=== PATIENT | female | born 1970 | race Caucasian/White ===

== ENCOUNTER → 2020-07-22 16:55 | Outpatient (BNVA) | payer MEDICAID, SELFPAY | PROVIDERS: Visit Provider Nurse Practitioner Family | DX: M77.10 Lateral epicondylitis, unspecified elbow (principal); E66.9 Obesity, unspecified; M77.12 Lateral epicondylitis, left elbow; E66.09 Other obesity due to excess calories; E03.9 Hypothyroidism, unspecified; Z68.31 Body mass index [BMI] 31.0-31.9, adult; E78.5 Hyperlipidemia, unspecified; E11.9 Type 2 diabetes mellitus without complications | CPT/HCPCS: 80053; 80061; 82306; 82607; 83036; 84439; 84443; 84481; 85025 ==

== ENCOUNTER → 2020-08-20 15:44 | Outpatient (BNVA) | payer MEDICAID, SELFPAY | PROVIDERS: Visit Provider Nurse Practitioner Family | DX: Z20.828 Contact with and (suspected) exposure to other viral communicable diseases (principal); J06.9 Acute upper respiratory infection, unspecified; R43.0 Anosmia | CPT/HCPCS: 87635 ==

== ENCOUNTER → 2020-09-23 16:30 | Outpatient (BNVA) | payer MEDICAID, SELFPAY | PROVIDERS: Visit Provider Nurse Practitioner Family | DX: Z20.828 Contact with and (suspected) exposure to other viral communicable diseases (principal); R51.9 Headache, unspecified; A08.4 Viral intestinal infection, unspecified | CPT/HCPCS: 87635 ==

== ENCOUNTER 2020-11-15 08:03 | Outpatient (CLI) | payer BC, SELFPAY ==
--- NOTE | 2020-11-15 08:13 | FL_ITS ---
WS: [id number] Exam: FL upper GI smallbowel series Date/Time of Exam: 11/15/2020 8:22 AM Reason For Exam: R11.2 - Nausea with vomiting, unspecified Fluoroscopy time: 3.9 minutes Signs of prior cholecystectomy. Swallowing function was normal. There is no sign of gastroesophageal reflux noted during fluoroscopy. There are postoperative changes of the stomach secondary to gastric sleeve procedure. The gastric re manent is freely distensible. No mass or ulceration is demonstrated. The duodenal bulb is smooth in c ontour. Barium spills freely into the proximal small bowel. The duodenal C-loop is not widened or dis placed. Small bowel follow-through. Barium courses through the small bowel without obstruction. Barium is not ed in the right colon at 20 minutes. No evidence of bowel loop herniation or displacement. The mucosa l pattern of the duodenum, jejunum and ileum appears normal. Spot compression images of the terminal ileum demonstrated no significant abnormal finding. FL/FL upper GI smallbowel series IMPRESSION: 1. Status post gastric sleeve procedure. The residual stomach demonstrates no m ass or ulceration. No gastric outlet obstruction. The duodenal bulb appears nor mal. 2. Normal small bowel follow-through.
== END 2020-11-15 08:04 | disposition home or self-care (01) ==
PROVIDERS: Visit Provider Surgery
DX: R11.2 Nausea with vomiting, unspecified (principal); Z98.84 Bariatric surgery status
CPT/HCPCS: 74240; 74248

== ENCOUNTER → 2020-12-05 15:17 | Outpatient (BNVA) | payer BC, MEDICAID, SELFPAY | PROVIDERS: PCP Nurse Practitioner Family; Visit Provider Psychiatry & Neurology Neurology | DX: M77.12 Lateral epicondylitis, left elbow (principal); G56.02 Carpal tunnel syndrome, left upper limb; Z87.891 Personal history of nicotine dependence | CPT/HCPCS: 95886; 95908 ==

== ENCOUNTER 2020-12-13 08:05 | Outpatient (CLI) | payer BC, MEDICAID, SELFPAY ==
[2020-12-13] MEDS: iohexol 300 mg/mL 50 mL Btl PO (08:54)
--- NOTE | 2020-12-13 09:30 | CT_ITS ---
WS: [id number] CT ABDOMEN AND PELVIS WITH CONTRAST HISTORY: R19.00 - Intra-abdominal and pelvic swelling, mass and lump, unspecified site TECHNIQUE: Imaging performed of the abdomen and pelvis with IV contrast. Single phase imaging of the abdomen. Coronal and sagittal reformats are submitted. All CT scans at [facility] use at least one of these dose optimization techniques: automated exposure control; mA and/or kV adjustment per patient size (includes targeted exams where dose is matched to clinical indication); or iterativ e reconstruction. IV CONTRAST: Omnipaque 300; 95 mL IV. Oral contrast: Yes. DLP: 1176.79 mGycm COMPARISON: 11/15/2015 Lower thorax: Benign granuloma at the LEFT lung base along the diaphragm. Heart is normal size. No hi atal hernia. Liver/biliary system: Normal size with no intrahepatic dilatation. Gallbladder: Status post cholecystectomy. Pancreas: Normal. Spleen: Normal size with granulomata. There is a cleft in the superior portion of the spleen which wa s not present on the prior study, may be from a prior infarct. No mass. Adrenal glands: Normal. Right kidney: Normal size kidney. There are several too small to characterize hypodensities within th e kidney. These are stable since 2016. Left kidney: Normal. Aorta: Normal. Lymphadenopathy: None. Free fluid: None. GI tract: Prior appendectomy. Prior gastric sleeve. No dilatation of the GI tract or strictures. No m ucosal thickening. There is mild diffuse constipation. Abdominal wall: Unremarkable abdominal wall. No hernia. Pelvis: No free fluid or adenopathy in the pelvis. There is mild heterogeneity within the central deon luisito which may be due to fibroids or endometrial abnormality. Bones: Unremarkable. CT/CT abdomen pelvis w con* [id number] IMPRESSION: 1. No acute abdominal or pelvic abnormalities are identified. 2. Prior gastric sleeve, appendectomy and cholecystectomy. 3. Mild heterogeneity within the central uterus. Consider follow-up transvagin al pelvic ultrasound to exclude fibroid or endometrial abnormality. 4. Moderate constipation.
[2020-12-13] MEDS: iohexol 300 mg/mL 100 mL Btl IV (09:43)
== END 2020-12-13 08:06 | disposition home or self-care (01) ==
PROVIDERS: PCP Nurse Practitioner Family; Visit Provider Surgery
DX: R19.00 Intra-abdominal and pelvic swelling, mass and lump, unspecified site (principal); K59.00 Constipation, unspecified; Z98.84 Bariatric surgery status
CPT/HCPCS: 74177; Q9967

== ENCOUNTER → 2020-12-19 09:58 | Outpatient (BNVA) | payer BC, MEDICAID, SELFPAY | PROVIDERS: PCP Nurse Practitioner Family; Visit Provider Surgery | DX: Z12.11 Encounter for screening for malignant neoplasm of colon (principal); Z11.52 Encounter for screening for COVID-19 | CPT/HCPCS: 87635 ==

== ENCOUNTER → 2021-03-20 10:30 | Outpatient (BNVA) | payer BC, MEDICAID, SELFPAY | PROVIDERS: PCP Nurse Practitioner Family; Visit Provider Surgery | DX: E53.8 Deficiency of other specified B group vitamins (principal); G56.02 Carpal tunnel syndrome, left upper limb | CPT/HCPCS: 87635 ==

== ENCOUNTER 2021-03-27 07:23 | Day surgery (SDC) | payer BC, MEDICAID, SELFPAY ==
[2021-03-26 17:46] VITALS: BMI 29.2
[2021-03-27] VITALS (7 sets, daily range): BP systolic 129–158; BP diastolic 72–82; PULSE 59–69; RESP 18–20; TEMP 36.1–36.5; O2SAT 95–97
[2021-03-27] MEDS: sodium chloride 0.9% 1,000 ML 30 ML IV (08:14)
--- NOTE | 2021-03-27 08:20 | W.PM.OPSUD ---
Surgery/Procedure H&P Update DATE OF PROCEDURE: March 27, 2021 DATE H&P PERFORMED: 03/21/21 H&P UPDATE INFORMATION: I have reviewed H&P completed within last 30 days PREOP DIAGNOSIS: Carpal tunnel syndrome, Left cubital tunnel syndrome, Lateral epicondylitis PLANNED PROCEDURE: Operation Date: 03/27/21 08:40 Proposed Procedures p left Carpal Tunnel Release and injection left elbow lateral epicondyle 45025 14963 G56.02 G56.22 M77.12(Left) - Ford Johnson MD s left Ulna Nerve Decompression(Left) - Ford Johnson MD
--- NOTE | 2021-03-27 08:27 | ANES.PREANE2 ---
Pre-Anesthetic Assessment Pre-Anesthetic Assessment: Height/Weight: Height 1.6 m Weight 74.843 kg Temp Pulse Resp BP Pulse Ox 97.7 F 64 18 152/78 97 03/27/21 07:35 03/27/21 07:35 03/27/21 07:35 03/27/21 07:35 03/27/21 07:35 Preop Diagnosis: Carpal tunnel syndrome, Left cubital tunnel syndrome, Lateral epicondylitis Proposed Procedure: Operation Date: 03/27/21 08:40 Proposed Procedures p left Carpal Tunnel Release and injection left elbow lateral epicondyle 07463 00977 G56.02 G56.22 M77.12(Left) - Ford Johnson MD s left Ulna Nerve Decompression(Left) - Ford Johnson MD Was Beta Rober taken within 24 hours: N/A Was Clonidine taken within 24 hours: N/A Last intake: Intake Last Liquid Date 03/26/21 Last Liquid Time 21:00 Last Solid Date 03/26/21 Last Solid Time 21:00 Social: Social History: Tobacco and No alcohol Exam: Pre-Anes Outpt Exam: alert, oriented x 3, clear to auscultation bilaterally and regular rate & rhythm Airway: Submandibular: WNL Cervical ROM: WNL MP: 2 Dentition: Full History/ROS: No significant history except as noted and No significant complaints Pulmonary: Pulmonary: None reported CV/HEM: CV/HEM: None reported : : None reported Hepatic: Hepatic: None reported GI: GI: None reported Metabolic: Metabolic: Thyroid Musc/skel: Musc/skel: None reported Neuropsych: Neuropsych: Anxiety and Depression Anesthetic Plan: ASA status: 2 Anesthesia: Anesthesia Evaluation and General Risk of > 500 ml blood loss (7ml/kg in children): No Meds/Allergies Current Medications: Current Medications Generic Name Dose Route Start Last Admin Trade Name Freq PRN Reason Stop Dose Admin Sodium Chloride 1,000 mls @ 30 ml s/hr 03/27/21 07:30 03/27/21 08:14 Sodium Chloride 0.9% IV 03/28/21 07:29 30 mls/hr .Q24H ILSA Administration PFSH Anesthesia PFSH: Medical History Anxiety and depression Diabetes Dyslipidemia Hypothyroid KRISTYN (obstructive sleep apnea) Surgical History Hx of appendectomy Hx of cholecystectomy Hx of gastric bypass Hx of tubal ligation Family History Family/Other Cancer Breast Heart disease Father Diabetes Social History Smoking and tobacco status: former smoker Quit status (tobacco): has quit using tobacco Year quit tobacco: 2014 Former quit date comment: 0.5 PPD x 15 yrs Second hand smoke exposure: No Alcohol intake: never Lives independently: Yes Household members: children Marital status: service: No Current occupational status: unemployed History of recent travel: No Current gender identity: Female Special kelly needs: No Data Anesthesia Cardiac Studies: No Data to Display
[2021-03-27] MEDS: clindamycin 600 MG/50 ML PREMIX 100 MG IV (08:30)
[2021-03-27] MEDS: betamethasone susp 6 mg/mL 5 mL IM (09:03)
--- NOTE | 2021-03-27 09:35 | PM.OP ---
Operative Report Date of procedure: March 27, 2021 Pre-op Diagnosis: Left carpal tunnel syndrome, cubital tunnel syndrome, Lateral epicondylitis Post-op diagnosis: same Post-op Findings: Same Procedure Done: Left ulnar nerve decompression injection, left carpal tunnel release, left lateral epicondyle injection. Pathology: none sent Surgeon: Ford Johnson Anesthesia: General Estimated blood loss (mL): 10 Tourniquet time (min): 13 Findings: No masses or space-occupying no masses or space-occupying lesions were seen behind the medial epicondyle or within the carpal tunnel. Procedure: The patient was taken to the operating room and given a general anesthesia. A tourniquet was inflated to 225 mmHg. A timeout was performed. A 5 cm long incision was made behind the medial epicondyle. Dissection was accomplished bluntly under loupe magnification identifying the ulnar nerve proximally. Utilizing a hemostat the fascia over the nerve was elevated and incised proximally. Dissection was then carried distally behind the medial epicondyle and into the flexor carpi ulnaris musculature. Dissection was stopped with the first muscular branches identified. Elbow was brought through range of motion with the nerve seen to stay reduced behind the medial epicondyle. No formal transition was thought to be warranted. Wounds were irrigated with saline. A 3 cm long incision was made in line with the fourth ray from the distal edge of the carpal tunnel extending proximally. The subcutaneous fat and palmar fascia was divided with a scalpel blade. Under loupe magnification the ulnar neurovascular bundle was identified distally. A hemostat could be passed under the transverse carpal ligament allowing the distal 25% to be divided. A slotted guide was then passed beneath the transverse carpal ligament and the middle 50% divided. Blunt scissors were then passed over the guide freeing the proximal ligament. The tourniquet was deflated. Hemostasis provided with electrocautery. A 27-gauge needle was then introduced into the area of the lateral epicondyle and distal soft tissues in that area infiltrated with 1 cc of Celestone Soluspan and 1 cc of 0.5% Marcaine. Wound edges were infiltrated with 10 cc of a half percent Marcaine solution about the left medial elbow and left carpal tunnel incisions. Deep tissues were closed with 2-0 Vicryl. Skin edges were reapproximated with a running 3-0 Prolene along the medial elbow and simple Prolene stitches over the carpal tunnel incisions.. Sterile dressings were applied. The patient was taken to the recovery room in stable condition
[2021-03-27] MEDS: HYDROcodone-acetaminophen 5-325 mg Tablet 1 TAB PO (10:10)
== END 2021-03-27 10:36 | disposition home or self-care (01) ==
PROVIDERS: PCP Nurse Practitioner Family; Visit Provider Orthopaedic Surgery
PROC: (CPT 64721; principal; 2021-03-27 08:35)
PROC: (CPT 64718; 2021-03-27 08:35)
DX: G56.02 Carpal tunnel syndrome, left upper limb (principal); G56.22 Lesion of ulnar nerve, left upper limb; M77.12 Lateral epicondylitis, left elbow; E11.9 Type 2 diabetes mellitus without complications; E78.5 Hyperlipidemia, unspecified; E03.9 Hypothyroidism, unspecified; G47.33 Obstructive sleep apnea (adult) (pediatric); Z87.891 Personal history of nicotine dependence
CPT/HCPCS: 64718; 64721; 96365; J0702; J1100; J1885; J2405; J2704; J3010; J3490; J7030

== ENCOUNTER → 2021-04-01 14:35 | Outpatient (BNVA) | payer BC, MEDICAID, SELFPAY | PROVIDERS: PCP Nurse Practitioner Family; Visit Provider Nurse Practitioner Family | DX: Z20.822 Contact with and (suspected) exposure to COVID-19 (principal); J06.9 Acute upper respiratory infection, unspecified | CPT/HCPCS: 87635 ==

== ENCOUNTER → 2021-04-22 15:03 | Outpatient (BNVA) | payer BC, MEDICAID, SELFPAY | PROVIDERS: PCP Nurse Practitioner Family; Visit Provider Orthopaedic Surgery | DX: Z48.89 Encounter for other specified surgical aftercare (principal); M25.569 Pain in unspecified knee | CPT/HCPCS: 73560; 73565 ==

== ENCOUNTER → 2021-04-30 17:00 | Outpatient (BNVA) | payer BC, MEDICAID, SELFPAY | PROVIDERS: PCP Nurse Practitioner Family; Visit Provider Nurse Practitioner Family | DX: G43.909 Migraine, unspecified, not intractable, without status migrainosus (principal); R53.83 Other fatigue; E88.81 Metabolic syndrome and other insulin resistance; L20.9 Atopic dermatitis, unspecified; R11.2 Nausea with vomiting, unspecified; M25.50 Pain in unspecified joint; G56.22 Lesion of ulnar nerve, left upper limb | CPT/HCPCS: 80053; 80061; 82306; 82607; 83036; 83721; 84439; 84443; 84550; 85025; 85651; 86038; 86140; 86431; 87635 ==

== ENCOUNTER → 2021-05-01 08:12 | Outpatient (BNVA) | payer BC, MEDICAID, SELFPAY | PROVIDERS: PCP Nurse Practitioner Family; Visit Provider Nurse Practitioner Family | DX: Z20.822 Contact with and (suspected) exposure to COVID-19 (principal); G43.909 Migraine, unspecified, not intractable, without status migrainosus; R53.83 Other fatigue; E88.81 Metabolic syndrome and other insulin resistance; L20.9 Atopic dermatitis, unspecified; R11.2 Nausea with vomiting, unspecified; M25.50 Pain in unspecified joint; G56.22 Lesion of ulnar nerve, left upper limb | CPT/HCPCS: 87635 ==

== ENCOUNTER → 2021-05-05 17:21 | Outpatient (BNVA) | payer BC, MEDICAID, SELFPAY | PROVIDERS: PCP Nurse Practitioner Family; Visit Provider Family Medicine | DX: M79.671 Pain in right foot (principal); L20.9 Atopic dermatitis, unspecified; M77.31 Calcaneal spur, right foot | CPT/HCPCS: 73630 ==

== ENCOUNTER 2021-05-07 08:55 | Day surgery (SDC) | payer MEDICAID, SELFPAY ==
[2021-05-07 09:35] VITALS: BP 136/67; PULSE 67; RESP 18; TEMP 36.1; O2SAT 98
[2021-05-07] MEDS: sodium chloride 0.9% 1,000 ML 30 ML IV (09:41)
[2021-05-07 10:02] LABS: OR HCG Qualitative Urine Negative (Negative)
--- NOTE | 2021-05-07 11:04 | P.HP_ITS ---
Same Day Surgery H&P Indication for Procedure/HPI DATE OF PROCEDURE: May 07, 2021 CHIEF COMPLAINT/INDICATIONFOR SURGICAL PROCEDURE: My lolita agudelo PREOP DIAGNOSIS: Abdominal pain PLANNED PROCEDRUE: Operation Date: 04/14/21 08:30 Proposed Procedures p EGD/colon 84589 07193 R63.5(Not Applicable) - Ramakrishna Morales MD s Colonoscopy(Not Applicable) - Ramakrishna Morales MD Operation Date: 05/07/21 10:15 Proposed Procedures p EGD 23725 R63.5(Not Applicable) - Ramakrishna Morales MD s Colonoscopy 90224 R63.5(Not Applicable) - Ramakrishna Morales MD 10/24/2020 This is a pleasant 50 years old female patient well-known to me from previous clinical encounters as she did undergo a laparoscopic vertical sleeve gastrectomy back in November 2016.Patient current weight is 162 pounds with a BMI of 30.6I did not see the patient almost for 2 years after her surgery as she moved to a different state. she came back to [place] she has been having history of repeated vomiting and worsening constipation. Undergone an upper GI study back in February 2019 that showed postoperative changes status post sleeve gastrectomy and a concern about potential gastroparesis was mentioned on that study. Upper GI study OPINION: 1. Limited exam. 2. Prior sleeve gastrectomy. 3. Generally diminished gastric peristalsis without mechanical outlet obstruction. Consider gastroparesis. Further evaluation could include nuclear medicine gastric emptying study. Also around that time an ultrasound of the abdomen was done that showed: FINDINGS: Echotexture of the pancreas is normal. Patent inferior vena cava. Echotexture of the liver is normal. Liver depth measures 15 cm. Antegrade portal venous flow. The gallbladder is surgically absent. Normal size extra hepatic bile duct at 2.1 mm. The abdominal aorta is nonaneurysmal. Right kidney measures 11.7 cm in length, 5 cm in depth and 4.6 cm in width with normal echotexture. Left kidney measures 13.4 cm in length, 4.6 cm in depth and 5.5 cm in width with normal echotexture. No pelvocaliectasis of either kidney. Normal spleen measuring 9.1 cm in length. OPINION: Prior cholecystectomy, otherwise normal ultrasound of the abdomen. Moving forward patient was complaining of hemorrhoidal disease and giving the previous history of vomiting and in the light of the upper GI study I did offer the patient diagnostic EGD and colonoscopy with examination under anesthesia and possible hemorrhoidectomy, Patient was scheduled for this procedure,Yet patient decided to hold off on the procedure. Since then I did not see the patient again in my practice, she comes today 10/24/2020 complaining that she has been concerned about gaining weight and having episodes of recurrent vomiting and constipation.And she reports to me that she had gone to [place] for a GI specialist and I do not have records of her work-up over there. Patient current weight is 162 pounds and a BMI of 30.6. Patient reports that she is not complaining of her hemorrhoids anymore at this point. 12/02/2020 patient comes today as follow-up status post upper GI study and small bowel follow-through that showed: 1. Status post gastric sleeve procedure. The residual stomach demonstrates no mass or ulceration. No gastric outlet obstruction. The duodenal bulb appears normal. 2. Normal small bowel follow-through. Patient continues to complain of nausea and vomiting and constipation also she is complaining of right upper quadrant bulge thinking it might be a hernia. 05/07/2021 Patient comes today for diagnostic EGD and colonoscopy CT scan of the abdomen pelvis 12/13/2020 showed 1. No acute abdominal or pelvic abnormalities are identified. 2. Prior gastric sleeve, appendectomy and cholecystectomy. 3. Mild heterogeneity within the central uterus. Consider follow-up transvaginal pelvic ultrasound to exclude fibroid or endometrial abnormality. 4. Moderate constipation. ROS All systems have been reviewed negative except as per the above or per problem list Medications/Allergies* Allergies/Adverse Reactions Allergy/AdvReac Type Severity Reaction Status Date / Time erythromycin base Allergy Severe ALGY-Difficulty Verified 05/07/21 11:10 Breathing Penicillins Allergy Severe ALGY-Difficulty Verified 05/07/21 11:10 Breathing Current Medications: Generic Name Dose Route Start Last Admin Trade Name Freq PRN Reason Stop Dose Admin Sodium Chloride 1,000 mls @ 30 mls/hr 05/07/21 09:45 05/07/21 09:41 Sodium Chloride 0.9% IV 05/08/21 09:44 30 mls/hr .Q24H ILSA Administration Pertinent History/Comorbid Conditions* Medical History (Updated 05/05/21 @ 17:14 by Jillian Gonzalez MD) Anxiety and depression Diabetes Dyslipidemia Hypothyroid Metabolic syndrome KRISTYN (obstructive sleep apnea) Surgical History (Updated 04/30/21 @ 16:37 by JOSE RAUL Demarco) History of carpal tunnel release right Hx of appendectomy Hx of cholecystectomy Hx of gastric bypass Hx of tubal ligation Family History (Updated 07/22/20 @ 15:50 by Samra Barber LPN, RT) Diabetes Father Heart disease Family/Other Cancer Family/Other Breast Social History Smoking and tobacco status: former smoker Quit status (tobacco): has quit using tobacco Year quit tobacco: 2014 Former quit date comment: 0.5 PPD x 15 yrs Second hand smoke exposure: No Alcohol intake: never Lives independently: Yes Household members: children Marital status: service: No Current occupational status: unemployed History of recent travel: No Current gender identity: Female Special kelly needs: No Pertinent Exam Findings alert, oriented x 3, clear to auscultation bilaterally, regular rate & rhythm and procedure specific exam findings (Abdominal examination nontender nondistended soft) Recommendations Surgery/Procedure today (EGD and colonoscopy possible) Other Plans: Plan of care; After thorough history and physical examination and reviewing the chart, plan to perform a diagnostic esophagogastroduodenoscopy and diagnostic colonoscopy with possible biopsy and possible polypectomy. I discussed with the patient in detail the risks,benefits,alternatives and indications.The risk of aspiration, bleeding, soft tissue injury, perforation of the stomach/esophagus/colon and other potential concomitant complications were explained to the patient in details also the potential need for Thoracotomy and or Laproscoy/Laparotomy to repair any related complications including but not limited to colectomy and or Closotomy. The patient understood this well and did agree to proceed. 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
--- NOTE | 2021-05-07 11:06 | ANES.PREANE2 ---
Documented by User: Darinel Quijano Jr, AUDIO VISUAL COLLECTIONS COORDINATOR 05/07/21 11:08 Pre-Anesthetic Assessment Pre-Anesthetic Assessment: Height/Weight: Height 1.6 m Weight 77.111 kg Temp Pulse Resp BP Pulse Ox 97.0 F L 67 18 136/67 98 05/07/21 09:35 05/07/21 09:35 05/07/21 09:35 05/07/21 09:35 05/07/21 09:35 Preop Diagnosis: Left carpal tunnel syndrome, cubital tunnel syndrome, Lateral epicondylitis Proposed Procedure: Operation Date: 04/14/21 08:30 Proposed Procedures p EGD/colon 36553 76884 R63.5(Not Applicable) - Ramakrishna Morales MD s Colonoscopy(Not Applicable) - Ramakrishna Morales MD Operation Date: 05/07/21 10:15 Proposed Procedures p EGD 27349 R63.5(Not Applicable) - Ramakrishna Morales MD s Colonoscopy 38548 R63.5(Not Applicable) - Ramakrishna Morales MD Was Beta Rober taken within 24 hours: N/A Was Clonidine taken within 24 hours: N/A Last intake: Intake Last Liquid Date 05/06/21 Last Liquid Time 22:00 Last Solid Date 05/05/21 Social: Social History: No alcohol and No tobacco Exam: Pre-Anes Outpt Exam: alert, oriented x 3, clear to auscultation bilaterally and regular rate & rhythm Airway: Submandibular: WNL Cervical ROM: WNL MP: 2 Dentition: Full History/ROS: No significant history except as noted and No significant complaints Pulmonary: Pulmonary: Sleep apnea CV/HEM: CV/HEM: None reported : : None reported Hepatic: Hepatic: None reported GI: GI: GERD Comments: Gastric sleeve Metabolic: Metabolic: DM and Thyroid Musc/skel: Musc/skel: None reported Neuropsych: Neuropsych: Anxiety Anesthetic Plan: ASA status: 3 Anesthesia: MAC Risk of > 500 ml blood loss (7ml/kg in children): No Meds/Allergies Current Medications: Current Medications Generic Name Dose Route Start Last Admin Trade Name Freq PRN Reason Stop Dose Admin Sodium Chloride 1,000 mls @ 30 ml s/hr 05/07/21 09:45 05/07/21 09:41 Sodium Chloride 0.9% IV 05/08/21 09:44 30 mls/hr .Q24H ILSA Administration PFSH Anesthesia PFSH: Medical History Anxiety and depression Diabetes Dyslipidemia Hypothyroid Metabolic syndrome KRISTYN (obstructive sleep apnea) Surgical History History of carpal tunnel release right Hx of appendectomy Hx of cholecystectomy Hx of gastric bypass Hx of tubal ligation Family History Family/Other Cancer Breast Heart disease Father Diabetes Social History Smoking and tobacco status: former smoker Quit status (tobacco): has quit using tobacco Year quit tobacco: 2014 Former quit date comment: 0.5 PPD x 15 yrs Second hand smoke exposure: No Alcohol intake: never Lives independently: Yes Household members: children Marital status: service: No Current occupational status: unemployed History of recent travel: No Current gender identity: Female Special kelly needs: No Data Anesthesia Other Labs: Laboratory Results - last 48 hr 05/07/21 09:43 Urine HCG, Qual Negative Cardiac Studies: No Data to Display Documented by User: Jassi Arzola 05/07/21 12:19 PFSH Anesthesia PFSH: Medical History Anxiety and depression Diabetes Dyslipidemia Hypothyroid Metabolic syndrome KRISTYN (obstructive sleep apnea) Surgical History History of carpal tunnel release right Hx of appendectomy Hx of cholecystectomy Hx of gastric bypass Hx of tubal ligation Family History Family/Other Cancer Breast Heart disease Father Diabetes Social History Smoking and tobacco status: former smoker Quit status (tobacco): has quit using tobacco Year quit tobacco: 2014 Former quit date comment: 0.5 PPD x 15 yrs Second hand smoke exposure: No Alcohol intake: never Lives independently: Yes Household members: children Marital status: service: No Current occupational status: unemployed History of recent travel: No Current gender identity: Female Special kelly needs: No Data Anesthesia Cardiac Studies: No Data to Display
[2021-05-07 11:40] VITALS: BP 114/76; PULSE 66; RESP 16; TEMP 36.1; O2SAT 94
[2021-05-07 11:51] VITALS: BP 129/76; PULSE 58; RESP 16; O2SAT 100
--- NOTE | 2021-05-07 14:10 | ANE.PACU2 ---
Inpatient post-anesthesia follow up: Airway intact: Yes Vital signs: Temperature 97 F Pulse Rate 58 Respiratory Rate 16 Blood Pressure 129/76 Pulse Oximetry 100 Oxygen Delivery Me thod Room Air Oxygen Flow Rate 3 Fraction of Inspir ed Oxygen Hydration adequate: Yes Nausea and vomiting: No Pain level: 1 Mental status: Baseline
[2021-05-08 13:21] LABS: H. Pylori / CLO Test Negative
== END 2021-05-07 12:10 | disposition home or self-care (01) ==
PROVIDERS: Anesthesiology; PCP Nurse Practitioner Family; Visit Provider Surgery
PROC: 0DJ08ZZ Inspection of Upper Intestinal Tract, Via Natural or Artificial Opening Endoscopic (ICD-10-PCS; CPT 43235; principal; 2021-05-07 10:15)
PROC: 0DJD8ZZ Inspection of Lower Intestinal Tract, Via Natural or Artificial Opening Endoscopic (ICD-10-PCS; CPT 45378; 2021-05-07 10:15)
DX: R10.9 Unspecified abdominal pain (principal); K29.70 Gastritis, unspecified, without bleeding; Z98.84 Bariatric surgery status; E11.9 Type 2 diabetes mellitus without complications; E78.5 Hyperlipidemia, unspecified; E03.9 Hypothyroidism, unspecified; G47.33 Obstructive sleep apnea (adult) (pediatric); F17.210 Nicotine dependence, cigarettes, uncomplicated; F41.9 Anxiety disorder, unspecified
CPT/HCPCS: 43239; 45378; 81025; 84703; 87077; 96360; 96361; J2704; J7030

== ENCOUNTER 2021-05-11 14:05 | Emergency (ER) | payer MEDICAID, SELFPAY ==
[2021-05-11 14:18] VITALS: BP 162/91; PULSE 82; RESP 16; TEMP 36.2; O2SAT 98
--- NOTE | 2021-05-11 14:33 | XRR_ITS ---
PROCEDURE INFORMATION: Exam: XR Left Knee Exam date and time: 05/11/2021 2:33 PM Age: 51 years old Clinical indication: Injury or trauma; Fall; Blunt trauma; Knee; Left TECHNIQUE: Imaging protocol: XR Left knee. Views: 3 views. COMPARISON: CR XR knees AP WB w BI lmt ORTH 04/22/2021 3:11 PM FINDINGS: Bones/joints: Negative for fracture. Mild joint space narrowing of the medial and patellofemoral compartments. Soft tissues: Normal. XR/XR knee LT 3V* [id number] IMPRESSION: No acute findings.
--- NOTE | 2021-05-11 14:33 | XRR_ITS ---
PROCEDURE INFORMATION: Exam: XR Chest Exam date and time: 05/11/2021 2:33 PM Age: 51 years old Clinical indication: Cough TECHNIQUE: Imaging protocol: XR of the chest. Views: 1 view. COMPARISON: CR Chest 1 [place] [id number] 12/09/2016 4:39 PM FINDINGS: Lungs: Unremarkable. No consolidation. Pleural spaces: Unremarkable. No pleural effusion. No pneumothorax. Heart/Mediastinum: Unremarkable. No cardiomegaly. Bones/joints: Unremarkable. XR/XR chest 1V portable [id number] IMPRESSION: No acute findings.
--- NOTE | 2021-05-11 14:33 | XRR_ITS ---
PROCEDURE INFORMATION: Exam: XR Thoracic Spine Exam date and time: 05/11/2021 2:33 PM Age: 51 years old Clinical indication: Injury or trauma; Fall; Blunt trauma (contusions or hematomas); Additional info: Back pain TECHNIQUE: Imaging protocol: XR of the thoracic spine. Views: 3 views. COMPARISON: CR (CHEST, ) 05/11/2021 3:11 PM FINDINGS: Bones/joints: No acute fracture. Normal alignment. Soft tissues: Unremarkable. XR/XR thoracic spine 3V* [id number] IMPRESSION: No acute findings.
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
[2021-05-11] MEDS: ketorolac 30 mg/mL INJ 15 MG IM (15:00)
--- NOTE | 2021-05-11 16:00 | PC.NURSE ---
No deformities for brusing noted,
== END 2021-05-11 16:34 | disposition home or self-care (01) ==
PROVIDERS: Emergency Provider Emergency Medicine; PCP Nurse Practitioner Family
DX: T14.8XXA Other injury of unspecified body region, initial encounter (principal); Y04.8XXA Assault by other bodily force, initial encounter; E11.9 Type 2 diabetes mellitus without complications; E78.5 Hyperlipidemia, unspecified; Z87.891 Personal history of nicotine dependence
CPT/HCPCS: 71045; 72072; 73562; 96372; 99283; J1885

== ENCOUNTER → 2021-05-20 15:20 | Outpatient (BNVA) | payer MEDICAID, SELFPAY | PROVIDERS: PCP Nurse Practitioner Family; Visit Provider Nurse Practitioner Family | DX: R07.81 Pleurodynia (principal); M25.512 Pain in left shoulder | CPT/HCPCS: 71101; 73030 ==

== ENCOUNTER 2021-05-21 08:46 | Observation (INO) | payer MEDICAID, SELFPAY ==
[2021-05-21] VITALS (8 sets, daily range): BP systolic 106–163; BP diastolic 67–111; PULSE 86–136; RESP 12–20; TEMP 36.6–37.2; O2SAT 91–99; BMI 31.8
--- NOTE | 2021-05-21 09:26 | ECG_ITS ---
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 Measurements Intervals [place] Rate: 98 P: 42 NE: 160 QRS: -3 QRSD: 93 T: -4 QT: 368 QTc: 472 Interpretive Statements SINUS RHYTHM WITH SOME ELECTRICAL ARTIFACTS POSSIBLE LEFT ATRIAL ENLARGEMENT [-0.1mV P-WAVE IN V1/V2] SEPTAL MYOCARDIAL INFARCTION , OF INDETERMINATE AGE [40+ ms Q WAVE IN V1/V2] Compared to ECG 05/21/2021 10:33:20 Sinus tachycardia no longer present Indeterminate axis no longer present Myocardial infarct finding still present Electronically Signed On 05-21-2021 21:39:04 CDT by Napoleon Felder M.D. [id number]
--- NOTE | 2021-05-21 09:26 | XR_ITS ---
WS: [id number] PORTABLE CHEST HISTORY: dyspnea/cough COMPARISON: 05/20/2021 Lungs are clear and well expanded. No pleural effusion or pneumothorax. Cardiac size: Normal. Mediastinum/Aorta: Normal mediastinum. No osseous abnormality seen. XR/XR chest 1V portable [id number] IMPRESSION: Unremarkable portable chest.
[2021-05-21 09:33] LABS: Basophils % 0.4 %; Eosinophils # 0.1 10^3/uL (0.0-0.8); Eosinophils % 0.5 %; Hematocrit 46.5 % (37.0-47.0); Hemoglobin 14.5 g/dL (11.5-15.3); Lymphocytes # 1.7 10^3/uL (0.8-4.8); Lymphocytes % 15.7 %; Mean Corpuscular HGB Conc 31.2 g/dL (30.0-36.0); Mean Corpuscular Hemoglobin 30.1 pg (28.0-34.0); Mean Corpuscular Volume 96.5 fl (81-99); Mean Platelet Volume 10.4 fL (7.4-10.4); Monocytes # 0.7 10^3/uL (0.2-0.9); Monocytes % 6.1 %; Neutrophils # 8.29 10^3/uL (1.8-7.7); Neutrophils % 76.9 %; Nucleated Red Blood Cells % 0 %; Platelet Count 342 10^3/cmm (130-400); Red Blood Count 4.82 10^6/uL (4.1-5.3); Red Cell Distribution Width 12.6 % (12.1-15.1); White Blood Count 10.8 10^3/uL (4.0-10.0)
[2021-05-21 09:51] LABS: Add Urine Microscopic? YES; Bilirubin Urine Neg (Negative); Blood Urine Neg (Negative); Glucose Urine UA Norm (Normal); Ketones Urine Negative (Negative); Leukocyte Esterase Urine Negative (Negative); Nitrate Urine Positive (Negative); Protein Urine Neg (Negative); Urine Appearance Clear (CLEAR); Urine Color Yellow (Yellow); Urobilinogen Urine Norm (Negative); pH Urine 6 (5-7)
[2021-05-21 09:53] LABS: Add Urine Culture? Yes; Bacteria Urine 2+ /hpf; Squamous Epithelial Cell Urine 0-4 /hpf (0-5); WBC Urine 0-4 /hpf (0-5)
--- NOTE | 2021-05-21 09:55 | W.ED.GENADLT ---
HPI - General Adult General: Chief complaint: General Medical Stated complaint: Reaction to Meds Time Seen by Provider: 05/21/21 08:50 History of Present Illness: HPI narrative: 51-year-old female presents emergency room complaining of shaking lightheadedness headache rapid heart rate dizziness. She started taking Flexeril yesterday took 1 last night took her regular medicines this morning additionally she is on citalopram 10 mg daily. She denies any other medication changes or use of any other medicines. She not having any chest pain at this time is extremely anxious and tachycardic. Patient had googled her symptoms and was concerned she had serotonin syndrome. Talked about increasing her citalopram but had not yet done so. She only took 1 dose of the cyclobenzaprine. Symptoms began earlier this morning and are persisting. Onset (ago): hour(s) Severity: moderate Relieving factors: none Exacerbating factors: none Associated symptoms: Reports diaphoresis, decreased appetite, headache(s), malaise, nausea, palpitations, short of breath and weakness; Deny chest pain, confusion, cough, dyspnea, fevers/chills, rash, seizures, syncope or vomiting Treatments prior to arrival: none Review of Systems Const: Reports: malaise and diaphoresis ENMT: Denies: throat pain, ear or mastoid pain, nasal discharge or nasal congestion Card: Reports: palpitations; Denies: chest pain or syncope Resp: Denies: dyspnea GI: Reports: nausea; Denies: vomiting : Denies: flank pain, difficulty voiding, dysuria, urinary frequency or urinary urgency Skin/Breast: Denies: rash Neuro: Reports: headache(s); Denies: confusion PFS ED PFSH: Medical History Anxiety and depression Diabetes Dyslipidemia Hypothyroid Metabolic syndrome KRISTYN (obstructive sleep apnea) Surgical History History of carpal tunnel release right Hx of appendectomy Hx of cholecystectomy Hx of gastric bypass Hx of tubal ligation Family History Family/Other Cancer Breast Heart disease Father Diabetes Social History Smoking and tobacco status: never smoked Quit status (tobacco): has quit using tobacco Year quit tobacco: 2014 Former quit date comment: 0.5 PPD x 15 yrs Second hand smoke exposure: No Alcohol intake: never Lives independently: Yes Household members: children Marital status: service: No Current occupational status: unemployed History of recent travel: No Current gender identity: Female Special kelly needs: No Physical Exam Const: COMMON NORMALS: no acute distress GENERAL APPEARANCE: cooperative and comfortable ORIENTATION/CONSCIOUSNESS: Yes awake, Yes oriented to person, Yes oriented to place and Yes oriented to time HENMT: COMMON NORMALS: normocephalic, atraumatic and hearing grossly normal bilaterally HEAD & SCALP: normocephalic and atraumatic Resp: COMMON NORMALS: normal respiratory effort, No retractions, No use of accessory muscles and clear to auscultation bilaterally AUSCULTATION: clear to auscultation bilaterally Cardio: COMMON NORMALS: regular rate, regular rhythm and No murmurs present (Cardio) RATE: regular rate RHYTHM: regular rhythm GI: COMMON NORMALS: Soft to palpation and No hepatosplenomegaly present AUSCULTATION: Yes normoactive bowel sounds PALPATION: Yes Soft to palpation, No Tenderness to palpation present (GI), No Guarding due to palpation present (GI) and Yes No hepatosplenomegaly present Extremity: COMMON NORMALS: normal to inspection, capillary refill normal, no clubbing, cyanosis or edema, no calf tenderness and no pedal edema Neuro: SENSORIUM/ORIENTATION: Yes oriented to person, Yes oriented to place and Yes oriented to time Skin: COMMON NORMALS: no rashes or lesions noted GENERAL SKIN EXAM: no rashes or lesions noted Course Vital Signs: Vital signs: Vital Signs Temperature 97.9 F 05/21/21 08:57 Pulse Rate 125 H 05/21/21 10:30 Respiratory Rate 12 05/21/21 10:30 Blood Pressure 127/92 05/21/21 10:30 Pulse Oximetry 95 05/21/21 10:30 MDM - General Adult MDM Narrative: Medical decision making narrative: Labs and imaging reviewed on the chart. EKG reviewed as well. Symptoms improved after benzodiazepines. Urine drug screen positive for methamphetamines. Discussed with the patient she said she takes phentermine occasionally. Is not listed on her medication list. She did say she took within the last couple of days. It is unlikely that she is getting serotonin syndrome from a single dose of cyclobenzaprine especially while on such a low dose of citalopram. For now would encourage her to stop both the phentermine and the cyclobenzaprine follow-up with her primary care doctor and return if she has further problems. Lab Data: Labs: Lab Results 05/21/21 05/21/21 05/21/21 09:15 09:15 09:15 WBC 10.8 10^3/uL H 10 ^3/uL (4.0-10.0) RBC 4.82 10^6/uL 10^6 /uL (4.1-5.3) Hgb 14.5 g/dL g/dL (11.5-15.3) Hct 46.5 % % (37.0-47.0) MCV 96.5 fl fl (81-99) MCH 30.1 pg pg (28.0-34.0) MCHC 31.2 g/dL g/dL (30.0-36.0) RDW 12.6 % % (12.1-15.1) Plt Count 342 10^3/cmm 10^3 /cmm (130-400) MPV 10.4 fL fL (7.4-10.4) Neut % (Auto) 76.9 % % Lymph % (Auto) 15.7 % % [place] % (Auto) 6.1 % % Eos % (Auto) 0.5 % % Baso % (Auto) 0.4 % % Neut # (Auto) 8.29 10^3/uL H 10 ^3/uL (1.8-7.7) Lymph # (Auto) 1.7 10^3/uL 10^3/ uL (0.8-4.8) [place] # (Auto) 0.7 10^3/uL 10^3/ uL (0.2-0.9) Eos # (Auto) 0.1 10^3/uL 10^3/ uL (0.0-0.8) Baso # (Auto) 0.0 10^3/uL 10^3/ uL (0.0-0.1) Nucleated RBC % (a uto) 0 % % Nucleated RBCs # 0.0 /100WBC /100W BC Sodium 136 mmol/L mmol/L (136-145) Potassium 4.2 mmol/L mmol/L (3.5-5.1) Chloride 99 mmol/L mmol/L (98-107) Carbon Dioxide 24 mmol/L mmol/L (22-29) Anion Gap 17.2 (5-19) BUN 14 mg/dL mg/dL (6-20) Creatinine 0.4 mg/dL L mg/dL (0.5-0.9) GFR Calculation 168.3 mL/min H mL /min (90-130) Glucose 123 mg/dL H mg/dL (65-115) Calculated Osmolal ity 284 mOsm/kg L mOs m/kg (285-295) Calcium 9.4 mg/dL mg/dL (8.5-10.5) Total Bilirubin 0.2 mg/dL mg/dL (0.15-1.2) AST 12 U/L U/L (0-32) ALT 17 U/L U/L (0-33) Alkaline Phosphata se 120 IU/L H IU/L (35-105) Creatine Kinase 49 U/L U/L (26-192) Troponin T Baselin e 42 ng/L H ng/L (0-10) Troponin T 120 Min [place] Troponin T Total Protein 7.4 g/dL g/dL (6.6-8.7) Albumin 4.6 g/dL g/dL (3.5-5.2) Globulin 2.8 g/dL g/dL (1.3-4.6) Urine Color Urine Appearance Urine pH Ur Specific Gravit y Urine Protein Urine Glucose (UA) Urine Ketones Urine Blood Urine Nitrate Urine Bilirubin Urine Urobilinogen Ur Leukocyte Laura ase Urine RBC Urine WBC Ur Squamous Epith Cells Amorphous Sediment Urine Bacteria Urine Opiates Scre en Ur Barbiturates Sc reen Ur Phencyclidine S crn Ur Amphetamines Sc reen U Benzodiazepines Scrn Urine Cocaine Scre en U Marijuana (THC) Screen 05/21/21 05/21/21 05/21/21 09:38 09:38 11:18 WBC RBC Hgb Hct MCV MCH MCHC RDW Plt Count MPV Neut % (Auto) Lymph % (Auto) [place] % (Auto) Eos % (Auto) Baso % (Auto) Neut # (Auto) Lymph # (Auto) [place] # (Auto) Eos # (Auto) Baso # (Auto) Nucleated RBC % (a uto) Nucleated RBCs # Sodium Potassium Chloride Carbon Dioxide Anion Gap BUN Creatinine GFR Calculation Glucose Calculated Osmolal ity Calcium Total Bilirubin AST ALT Alkaline Phosphata se Creatine Kinase Troponin T Baselin e Troponin T 120 Min [place] 32.73 ng/L H ng/L (0-10) Delta Troponin T -9.27 ABS# L ABS# (0-10) Total Protein Albumin Globulin Urine Color Yellow (Yellow) Urine Appearance Clear (CLEAR) Urine pH 6 (5-7) Ur Specific Gravit y 1.020 (1.005-1.030) Urine Protein Neg (Negative) Urine Glucose (UA) Norm (Normal) Urine Ketones Negative (Negative) Urine Blood Neg (Negative) Urine Nitrate Positive H (Negative) Urine Bilirubin Neg (Negative) Urine Urobilinogen Norm mg/dL mg/dL (Negative) Ur Leukocyte Laura ase Negative (Negative) Urine RBC None /hpf /hpf (0-2) Urine WBC 0-4 /hpf H /hpf (0-5) Ur Squamous Epith Cells 0-4 /hpf H /hpf (0-5) Amorphous Sediment Not Reportable Urine Bacteria 2+ /hpf H /hpf (NONE) Urine Opiates Scre en Negative ng/mL ng /mL (Negative) Ur Barbiturates Sc reen Negative ng/mL ng /mL (Negative) Ur Phencyclidine S crn Negative ng/mL ng /mL (Negative) Ur Amphetamines Sc reen Positive ng/mL H ng/mL (Negative) U Benzodiazepines Scrn Negative ng/mL ng /mL (Negative) Urine Cocaine Scre en Negative ng/mL ng /mL (Negative) U Marijuana (THC) Screen Negative ng/mL ng /mL (Negative) Discharge Plan Discharge Patient Disposition: Home Clinical Impression: Medication side effects Condition: Stable Prescriptions: Discontinued cyclobenzaprine 10 mg tablet 10 mg PO TID PRN (Reason: muscle spasm) Qty: 20 RF: 0 No Action cyanocobalamin (vitamin B-12) 1,000 mcg/mL solution 1,000 mcg SUBCUT .monthly Qty: 1 RF: 3 diclofenac sodium 75 mg tablet,delayed release (DR/EC) 75 mg PO BID PRN (Reason: pain) Qty: 60 RF: 0 pantoprazole 40 mg tablet,delayed release (DR/EC) 40 mg PO DAILY Qty: 30 RF: 0 citalopram 10 mg tablet 10 mg PO DAILY Qty: 30 RF: 0 sumatriptan succinate [Imitrex] 100 mg tablet See Rx Instructions PO .COMPLEX Qty: 9 RF: 0 pimecrolimus [Elidel] 1 % cream 1 applic topical BID Qty: 30 RF: 1 ergocalciferol (vitamin D2) 1,250 mcg (50,000 unit) capsule 1,250 mcg PO .weekly Qty: 4 RF: 2 Discharge Orders: Discharge ED (Routine); Ordered 05/21/21 Ordered By: David Taylor Referrals: Samra Alva FNP [Primary Care Provider] - Discharge Diet: Usual diet Discharge Activity: Limit activity as instructed Patient Instructions: Opioid Safety Activity Restrictions/Additional Instructions: Stop cyclobenzaprine. Recommend against the use of phentermine. Follow-up with your primary care doctor within the next week. Coding Level of Care Code ED Auto Body Shop Manager for Elie Fwd Exam Detailed
[2021-05-21 10:02] LABS: Alanine Aminotransferase 17 U/L (0-33); Albumin Level 4.6 g/dL (3.5-5.2); Alkaline Phosphatase 120 IU/L (35-105); Anion Gap 17.2 (5-19); Aspartate Amino Transferase 12 U/L (0-32); Blood Urea Nitrogen 14 mg/dL (6-20); Calcium 9.4 mg/dL (8.5-10.5); Carbon Dioxide 24 mmol/L (22-29); Chloride 99 mmol/L (98-107); Creatine Phosphokinase 49 U/L (26-192); Globulin 2.8 g/dL (1.3-4.6); Glomerular Filtration Rate 168.3 mL/min (90-130); Glucose 123 mg/dL (65-115); Osmolality Calculated 284 mOsm/kg (285-295); Potassium 4.2 mmol/L (3.5-5.1); Sodium 136 mmol/L (136-145); Total Bilirubin 0.2 mg/dL (0.15-1.2); Total Protein 7.4 g/dL (6.6-8.7)
[2021-05-21] MEDS: LORazepam 2 mg/mL INJ 1 mL IVP (10:03)
[2021-05-21 10:33] LABS: Amphetamines Screen Urine Positive (Negative); Barbiturates Screen Urine Negative (Negative); Benzodiazepines Screen Urine Negative (Negative); Cocaine Screen Urine Negative (Negative); Opiate Screen Urine Negative (Negative); PCP Screen Urine Negative (Negative); THC Screen Urine Negative (Negative)
[2021-05-21 10:36] LABS: Troponin(5th) Baseline 42 ng/L (0-10)
--- NOTE | 2021-05-21 11:26 | ECG_ITS ---
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 Measurements Intervals [place] Rate: 126 P: 42 SD: 148 QRS: -37 QRSD: 88 T: 14 QT: 312 QTc: 453 Interpretive Statements SINUS TACHYCARDIA Poor R wave progression Possible old septal PA INDETERMINATE AXIS No previous ECG available for comparison Electronically Signed On 05-21-2021 21:47:07 CDT by Napoleon Felder M.D. [email or web address] [email or web address] clinic avon hospitalJack and Jake's/store/[id number]
[2021-05-21 11:54] LABS: Troponin 5 2HR 32.73 ng/L (0-10)
[2021-05-21] MEDS: LORazepam 2 mg Tablet PO (12:51)
--- NOTE | 2021-05-21 13:01 | CT_ITS ---
WS: [id number] CT CHEST ANGIOGRAPHY WITH REFORMATS HISTORY: tachycardia TECHNIQUE: Contiguous axial images are obtained through the chest during arterial injection of intrav enous contrast. Images are reconstructed to evaluate the pulmonary arteries. MIP imaging also reviewe d. All CT scans at [facility] use at least one of these dose optimization techniques: automat ed exposure control; mA and/or kV adjustment per patient size (includes targeted exams where dose is matched to clinical indication); or iterative reconstruction. CONTRAST: Omnipaque 350; 95 mL IV. DLP: 572.81 mGy.cm COMPARISON: None available. Very good opacification of the pulmonary arteries. No filling defect. Pulmonary artery size is equal to the aorta. Normal size aorta. Normal size heart. No pericardial or pleural effusions. Lungs are clear. No pneumothorax, pulmonary contusion, pneumonia or nodule. Subsegmental atelectasis at the lingula and a benign granuloma LEFT lower lobe. No mediastinal or hilar adenopathy. Small hiatal hernia. Hepatic steatosis. Prior cholecystectomy. No adrenal mass. Mild thoracolumbar sc oliosis. LEFT lateral fourth and fifth rib fractures. These fractures are not healed. There is very minimal ca llus formation and pleural thickening adjacent to these rib fractures. CT/CT angio chest PE protcl 05194 IMPRESSION: 1. No pulmonary embolism. 2. No pneumothorax. 3. Incompletely healed, nondisplaced LEFT fourth and fifth rib fractures. 4. No adenopathy.
--- NOTE | 2021-05-21 13:01 | CT_ITS ---
WS: [id number] CT HEAD NONCONTRAST HISTORY: headache TECHNIQUE: Contiguous axial imaging performed through the brain in 2.5 mm imaging. Bone and soft tiss ue windows. Sagittal and coronal reformats reviewed. All CT scans at [facility] use at least one of these dose optimization techniques: automated exposure control; mA and/or kV adjustment per pa tient size (includes targeted exams where dose is matched to clinical indication); or iterative recon struction. DLP: 1672.41 mGy.cm COMPARISON: None available. No acute intracranial hemorrhage, midline shift or mass effect. No atrophy or prior infarcts or herniation. Ventricles: Normal size with no hydrocephalus. Paranasal sinuses: As visualized are clear. Mastoid air cells: Well pneumatized. Calvarium and scalp: Skull is intact with no soft tissue edema or swelling. CT/CT head wo con* [id number] IMPRESSION: Negative head CT.
[2021-05-21] MEDS: iohexol 350 mg/mL 100 mL Btl IV (13:11)
[2021-05-21 13:17] LABS: Free T4 Free Thyroxine 1.15 ng/dL (0.82-1.77)
[2021-05-21] MEDS: metoprolol tartrate 50 mg Tablet PO (14:38)
[2021-05-21] MEDS: metoprolol tartrate 1 mg/1 mL SDV 5 mL 5 MG IVP (14:38)
[2021-05-21] MEDS: sodium chloride 0.9% 1,000 ML 150 ML IV (14:39)
--- NOTE | 2021-05-21 15:26 | ECG_ITS ---
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 Measurements Intervals [place] Rate: 123 P: 19 CA: 158 QRS: -24 QRSD: 87 T: 9 QT: 322 QTc: 461 Interpretive Statements SINUS TACHYCARDIA INDETERMINATE AXIS SEPTAL MYOCARDIAL INFARCTION , PROBABLY OLD [40+ ms Q WAVE IN V1/V2] No previous ECG available for comparison Electronically Signed On 05-21-2021 21:47:18 CDT by Napoleon Felder M.D. [id number]
[2021-05-21 16:04] LABS: Troponin 5 6HR 23.26 ng/L (0-10)
[2021-05-21] MEDS: enoxaparin 40 mg/0.4 mL Syringe SUBCUT (16:11)
[2021-05-21] MEDS: ketorolac 30 mg/mL INJ IVP (16:11)
--- NOTE | 2021-05-21 16:30 | PM.HP ---
Providers/Chief Complaint Admitting Physician: Isabel Flores MD Primary Care Provider: JOSE RAUL Demarco Chief Complaint: Reaction to Meds History of Present Illness Cecily Muniz is a 51 year old female with history of ADD, vitamin D deficiency, depression, vitamin B12 deficiency, celiac disease, gastric sleeve 2017 presented to the hospital today with complaint of vomiting in the middle of the night, diaphoresis, headache. She does have a history of migraines and has a headache maybe once or twice a week. Patient believed that she had serotonin syndrome as per the ER note. She was on citalopram and yesterday was prescribed Flexeril. She took 1 dose of the Flexeril and had the above symptoms about 6 hours later. She states she googled the symptoms and there was a severe interaction between Flexeril and citalopram. She is quite anxious and concerned and will not be taking Flexeril again. She states she has a lot of anxiety problems and would like her to stay in the hospital with her tonight. At this point in time when seen she complains of a headache at the back of her head which is about 8 out of 10 at this moment. She states does not feel like her migraine. She usually has auras with her migraines and before it comes on she takes medication and she is able to control the headache. She denies any nausea vomiting, abdominal pain, chest pain, any other issues at this time. About 1 week ago she was in the ER diagnosed with rib fractures. For her ADD she claims that as an adult she has outgrown it and does not take any Ritalin or Adderall. There is also a history of positive VINCE and her primary care is currently working her up for that. ED course: On arrival to ER blood pressure 127/92, respiratory rate 12, pulse ox 95%, heart rate 125, temperature 97.9. EKG was performed and no acute ischemic changes, urine drug screen positive for methamphetamines. This was discussed with the patient but she states she did has never taken meth but she does take phentermine occasionally but it is not her medication list. She states the last time it took phentermine was a couple of days ago. Plan was to discharge her but right before discharge her heart rate was in the 130s again. At one point her blood pressure was also elevated to 163/93. CTA was done and PE was ruled out, CT head was also done negative for intracranial bleed or any other pathology. She was recommended for an observation admission. Review of Systems General: Reports: 10 or more systems reviewed and unremarkable except in HPI and below Const: Reports: body aches; Denies: fever(s) or chills Eyes: Denies: blurry vision ENMT: Denies: throat pain Card: Reports: palpitations; Denies: chest pain or irregular heart rhythm Resp: Denies: dyspnea or productive cough GI: Reports: nausea and vomiting; Denies: abdominal pain : Denies: difficulty voiding Musc: Reports: other Neuro: Reports: headache(s) and restless legs; Denies: numbness in extremities or weakness in extremities Psych: Reports: anxiety Endo: Denies: polydipsia All/Imm: Denies: facial swelling Medications/Allergies Home Medications Medication Instructions Recorded Confirmed Last Taken Type citalopram 10 mg tablet 10 mg PO DAILY #30 tab 04/30/21 05/21/21 05/21/21 Rx pantoprazole 40 mg tablet,delayed 40 mg PO DAILY #30 tab 04/30/21 05/21/21 05/21/21 Rx release sumatriptan succinate 100 mg tablet See Rx Instructions PO .COMPLEX #9 04/30/21 05/21/21 Unknown Rx tab pimecrolimus 1 % topical cream 1 applic TOPICAL BID #30 g 05/06/21 05/21/21 Unknown Rx diclofenac sodium 75 mg 75 mg PO BID PRN #60 tab 05/20/21 05/21/21 Unknown Rx tablet,delayed release cyanocobalamin (vitamin B-12) 1,000 mcg SUBCUT Q30D 05/21/21 05/21/21 Unknown History cyclobenzaprine 10 mg PO TID PRN 05/21/21 05/21/21 Unknown History ergocalciferol (vitamin D2) 1,250 mcg PO Q7D 05/21/21 05/21/21 Unknown History Allergies Allergy/AdvReac Type Severity Reaction Status Date / Time erythromycin base Allergy Severe ALGY-Difficulty Verified 05/21/21 09:07 Breathing Penicillins Allergy Severe ALGY-Difficulty Verified 05/21/21 09:07 Breathing PFSH Acute PFSH: Medical History Anxiety and depression Diabetes Dyslipidemia Hypothyroid Metabolic syndrome KRISTYN (obstructive sleep apnea) Surgical History History of carpal tunnel release right Hx of appendectomy Hx of cholecystectomy Hx of gastric bypass Hx of tubal ligation Family History Family/Other Cancer Breast Heart disease Father Diabetes Social History Smoking and tobacco status: never smoked Quit status (tobacco): has quit using tobacco Year quit tobacco: 2014 Former quit date comment: 0.5 PPD x 15 yrs Second hand smoke exposure: No Alcohol intake: never Lives independently: Yes Household members: children Marital status: service: No Current occupational status: unemployed History of recent travel: No Current gender identity: Female Special kelly needs: No Vitals/I&O/Wt Last Vital Signs Temp 98.5 F 05/21/21 15:54 Pulse 90 05/21/21 15:54 Resp 14 05/21/21 15:54 BP 106/68 05/21/21 15:54 Pulse Ox 97 05/21/21 15:54 Weight last 48 hrs Weight 81.647 kg Weight 81.647 kg Physical Exam Narrative: EXAM NARRATIVE: General: Alert oriented x3, patient seen laying in bed with fianc? present at bedside. She appears quite anxious and worried. Vital signs stable not tachycardic. HEENT: Normocephalic, atraumatic, EOMI, breathing room air Cardio: Regular rate rhythm, normal S1-S2, no murmurs rubs gallops, Respiratory: Good bilateral air entry, no wheezes no rhonchi appreciated GI: Abdomen soft, nontender, nondistended, bowel sounds + Behavior: Appropriate and cooperative, anxious Extremities: Pulses 2+, no edema, no cyanosis Does have a tender point on the left side of chest and left knee from her previous fall and previous rib fracture. Data : 05/21/21 09:15 05/21/21 09:15 A&P Assessment and plan (1) Headache: It is unlikely that the cause of her symptoms was serotonin syndrome. Her urine drug screen did show methamphetamine positive. Patient denies using it. She does have ADD but states she is not on Ritalin or Adderall. She does admit to use of phentermine occasionally. She states the last use of phentermine was days or weeks ago. She was tachycardic and hypertensive in the ER but those symptoms resolved by administration of Ativan. We will admit patient for observation tonight. We will stop cyclobenzaprine. We will continue citalopram. For headache, I will use Toradol for now and see if that helps. We will avoid opiate use. We will monitor on telemetry overnight and monitor vitals. Will reassess patient in a.m. She had dirty urinalysis on admission but denies any urinary complaints at this time. I will not start antibiotics. She does have a mild white count elevation. I will repeat that tomorrow. Afebrile at this time. Fluids: Not indicated Electrolytes: Replete as needed Diet: Low-sodium consistent carbohydrate diet. Activity: As tolerated DVT prophylaxis: Lovenox 40 daily Status: Acute (2) Nausea and vomiting: Status: Acute Qualifiers: Vomiting type: unspecified Vomiting Intractability: unspecified Qualified Code(s): R11.2 - Nausea with vomiting, unspecified (3) Rib pain: Status: Acute (4) Anxiety: Status: Acute (5) Methamphetamine use: Status: Acute (6) Sinus tachycardia: Status: Acute Attestations Medical Necessity Statement*: Will be admitted for observation overnight. Most likely discharge tomorrow and follow-up with outpatient primary care physician. Time Spent in Patient Care: 16 - 35 minutes Coding Level of Care Code Acute Director Of [facility] Services for [facility] Fwd Diagnoses Headache R51.9 Nausea and vomiting R11.2 Vomiting type: unspecified Vomiting Intractability: unspecified Rib pain R07.81 Anxiety F41.9 Methamphetamine use F15.10 Sinus tachycardia R00.0
[2021-05-21] MEDS: docusate sodium 100 mg Capsule PO (17:27)
--- NOTE | 2021-05-21 19:31 | PC.NURSE ---
Discovered patient leaving with significant other carrying bags. Patient educated on leaving AMA, signed paperwork and removed her own IV. Physician notified.
--- NOTE | 2021-05-22 12:16 | PC.SOCIAL ---
discharge follow up call made, patient was very upset when conventional mortgage underwriter called. patient was upset with her pcp and with [facility]. unable to complete follow up call at this time. conventional mortgage underwriter gave number to case management office incase patient needs additional help.
--- NOTE | 2021-05-22 22:05 | PM.EVENT ---
Event Note Event Note: Patient signed out AMA on 05/21/2021 around 10 pm. I was not present at the hospital at that time.
== END 2021-05-21 20:00 | disposition left against medical advice (07) ==
LOC: ER 13:16 → MEDSURG 13:33
PROVIDERS: Admitting Provider Internal Medicine; Emergency Provider Family Medicine; PCP Nurse Practitioner Family; Visit Provider Internal Medicine
DX: R11.2 Nausea with vomiting, unspecified (principal); R51.9 Headache, unspecified; R07.81 Pleurodynia; Z53.29 Procedure and treatment not carried out because of patient's decision for other reasons; F41.9 Anxiety disorder, unspecified; F15.10 Other stimulant abuse, uncomplicated; R00.0 Tachycardia, unspecified; F98.8 Other specified behavioral and emotional disorders with onset usually occurring in childhood and adolescence; E55.9 Vitamin D deficiency, unspecified; F32.9 Major depressive disorder, single episode, unspecified; E53.8 Deficiency of other specified B group vitamins; K90.0 Celiac disease; Z98.84 Bariatric surgery status; E11.9 Type 2 diabetes mellitus without complications; E78.5 Hyperlipidemia, unspecified; E03.9 Hypothyroidism, unspecified; G47.33 Obstructive sleep apnea (adult) (pediatric); Z82.49 Family history of ischemic heart disease and other diseases of the circulatory system; Z83.3 Family history of diabetes mellitus
CPT/HCPCS: 36415; 70450; 71045; 71275; 80053; 80306; 81001; 82550; 84439; 84443; 84484; 85025; 87077; 87086; 87186; 93005; 96372; 96374; 96375; 99285; G0378; J1650; J1885; J2060; J3490; J7030; Q9967

== ENCOUNTER 2021-06-16 11:19 | Emergency (ER) | payer MEDICAID, SELFPAY ==
[2021-06-16 11:45] VITALS: BP 142/85; PULSE 84; RESP 26; TEMP 37.2; O2SAT 98; BMI 27.4
[2021-06-16 11:55] VITALS: BP 144/89; PULSE 86; RESP 28; TEMP 37.2; O2SAT 98
--- NOTE | 2021-06-16 12:31 | W.ED.BACK ---
Documented by User: FALLON Quinones 06/19/21 07:04 HPI - Back Pain/Injury General: Chief Complaint: Back Pain/Injury Stated Complaint: SEVERE BACK PAIN Time Seen by Provider: 06/16/21 12:04 Source: patient and family () Mode of arrival: ambulatory Limitations: no limitations History of Present Illness: HPI Narrative: Patient is a 51-year-old female who presents to ED today along with her for complaints of severe lower back pain. states patient began complaining of pain 2 days ago but it was fairly mild at that point. He states over that time. She has progressively complained of worsening and worsening discomfort. He states she was up several times throughout the night complaining of pain. She tried to go to work this morning and began having excruciating pain thus prompting her visit now. states she has had pain to that particular area previously but has never been this severe. She is not complaining of radicular pain into her lower extremities. She states pain is fairly localized to her lower back and right side. She describes the pain as severe spasming. Denies saddle anesthesia, urinary retention, bowel incontinence. She has no urinary complaints such as dysuria, frequency, urgency, hematuria, or flank pain. Denies fevers/chills. Denies IV drug use. MD elicited complaint: back pain Pertinent past history: prior back pain Onset (ago): day(s) Timing: constant Severity: severe Pain scale (0-10): 10 Similar Symptoms Previously: Yes Quality: sharp, stabbing and spasming Location: lumbar spine and right lower back Radiation: none Exacerbating factors: movement and sitting upright Associated symptoms: Reports difficulty walking (secondary to pain); Deny abdominal pain, chills, change in bowel habits, dysuria, fatigue, fever(s), nausea, urinary urgency or vomiting Work related injury: No Review of Systems Const: Denies: fever(s), chills, body aches, fatigue or malaise Card: Denies: chest pain Resp: Denies: dyspnea GI: Denies: abdominal pain, nausea, vomiting, diarrhea, change in bowel habits, pain on defecation or change in stool character : Denies: flank pain, difficulty voiding, dysuria, urinary frequency or urinary urgency Musc: Reports: back pain; Denies: neck pain, extremity pain, extremity swelling, joint pain, joint swelling or joint redness Skin/Breast: Denies: rash Neuro: Reports: difficulty walking (secondary to pain); Denies: headache(s), numbness in extremities, weakness in extremities or sensory changes PFSH ED PFSH: Medical History (Updated 06/17/21 @ 11:08 by Zeinab Alva LPN) Anxiety and depression Diabetes Dyslipidemia Hypothyroid Metabolic syndrome KRISTYN (obstructive sleep apnea) Surgical History History of carpal tunnel release right Hx of appendectomy Hx of cholecystectomy Hx of gastric bypass Hx of tubal ligation Family History Family/Other Cancer Breast Heart disease Father Diabetes Social History (Updated 06/17/21 @ 09:24 by Zeinab Alva LPN) Smoking and tobacco status: former smoker Quit status (tobacco): has quit using tobacco Year quit tobacco: 2014 Former quit date comment: 0.5 PPD x 15 yrs Second hand smoke exposure: No Alcohol intake: never Lives independently: Yes Household members: children Marital status: service: No Current occupational status: unemployed History of recent travel: No Current gender identity: Female Special kelly needs: No Physical Exam Const: COMMON NORMALS: patient oriented x3, no limitations and alert GENERAL APPEARANCE: cooperative and in distress (extremely distraught secondary to pain) NUTRITIONAL APPEARANCE: overweight ORIENTATION/CONSCIOUSNESS: Yes awake, Yes oriented to person, Yes oriented to place and Yes oriented to time HENMT: COMMON NORMALS: normocephalic and atraumatic HEAD & SCALP: normocephalic and atraumatic Resp: COMMON NORMALS: normal respiratory effort and clear to auscultation bilaterally AUSCULTATION: clear to auscultation bilaterally Cardio: COMMON NORMALS: regular rate and regular rhythm RATE: regular rate RHYTHM: regular rhythm GI: COMMON NORMALS: Normal to inspection, nondistended, normoactive bowel sounds present, Soft to palpation, non-tender, No hepatosplenomegaly present and no masses PALPATION: Yes Soft to palpation and Yes No hepatosplenomegaly present : COMMON NORMALS: Yes no CVA tenderness BLADDER/KIDNEY EXAM: Yes no CVA tenderness Back/Pelvis: COMMON NORMALS: no CVA tenderness THORACIC SPINE/UPPER BACK: Yes normal to inspection, No thoracic spinal tenderness and No paraspinal muscle tenderness LUMBAR SPINE/LOWER BACK: Yes lumbar spinal tenderness Lumbar spinal tenderness location: L4 and L5 and Yes paraspinal muscle tenderness Lumbar paraspinal muscle tenderness: right PELVIS: Yes sciatic notch tenderness on the right SACRUM: no tenderness COCCYX: no tenderness Extremity: COMMON NORMALS: normal to inspection, full ROM, capillary refill normal, no calf tenderness and no pedal edema GENERAL: Yes normal exam except as noted Neuro: COMMON NORMALS: patient oriented x3, moves all extremities, no focal motor deficits and no sensory deficits noted SENSORIUM/ORIENTATION: Yes alert, Yes oriented to person, Yes oriented to place and Yes oriented to time GAIT: Yes Unable to assess gait Skin: COMMON NORMALS: no rashes or lesions noted GENERAL SKIN EXAM: no rashes or lesions noted TRAUMA: no lacerations or abrasions Course Reevaluation(s): Reevaluation #1: Despite several medications including Toradol, Morphine, Valium, Norflex,, and Dexamethasone patient is still complaining of excruciating pain and is unable to ambulate. Dr. León will evaluate patient and perform injections if indicated for attempted symptom relief. Vital Signs: Vital signs: Vital Signs Temperature 98.9 F 06/16/21 11:55 Pulse Rate 85 06/16/21 18:03 Respiratory Rate 16 06/16/21 18:03 Blood Pressure 140/80 06/16/21 18:03 Pulse Oximetry 97 06/16/21 18:03 MDM - Back Pain/Injury Lab Data: Labs: Lab Results 06/16/21 06/16/21 06/16/21 12:50 12:50 17:22 WBC 10.8 10^3/uL H 10 ^3/uL (4.0-10.0) RBC 4.58 10^6/uL 10^6 /uL (4.1-5.3) Hgb 14.3 g/dL g/dL (11.5-15.3) Hct 44.8 % % (37.0-47.0) MCV 97.8 fl fl (81-99) MCH 31.2 pg pg (28.0-34.0) MCHC 31.9 g/dL g/dL (30.0-36.0) RDW 13.2 % % (12.1-15.1) Plt Count 308 10^3/cmm 10^3 /cmm (130-400) MPV 10.6 fL H fL (7.4-10.4) Neut % (Auto) 90.1 % % Lymph % (Auto) 8.2 % % [place] % (Auto) 0.8 % % Eos % (Auto) 0.2 % % Baso % (Auto) 0.2 % % Neut # (Auto) 9.73 10^3/uL H 10 ^3/uL (1.8-7.7) Lymph # (Auto) 0.9 10^3/uL 10^3/ uL (0.8-4.8) [place] # (Auto) 0.1 10^3/uL L 10^ 3/uL (0.2-0.9) Eos # (Auto) 0.0 10^3/uL 10^3/ uL (0.0-0.8) Baso # (Auto) 0.0 10^3/uL 10^3/ uL (0.0-0.1) Nucleated RBC % (a uto) 0 % % Nucleated RBCs # 0.0 /100WBC /100W BC Sodium Potassium Chloride Carbon Dioxide Anion Gap BUN Creatinine GFR Calculation Glucose Calculated Osmolal ity Calcium Urine Color Yellow (Yellow) Urine Appearance Hazy A (CLEAR) Urine pH 5 (5-7) Ur Specific Gravit y 1.020 (1.005-1.030) Urine Protein Neg (Negative) Urine Glucose (UA) Norm (Normal) Urine Ketones Negative (Negative) Urine Blood 2+ H (Negative) Urine Nitrate Positive H (Negative) Urine Bilirubin Neg (Negative) Urine Urobilinogen Norm mg/dL mg/dL (Negative) Ur Leukocyte Laura ase Negative (Negative) Urine RBC 0-4 /hpf H /hpf (0-2) Urine WBC 15-25 /hpf H /hpf (0-5) Ur Squamous Epith Cells 5-10 /hpf H /hpf (0-5) Amorphous Sediment Not Reportable Urine Bacteria 2+ /hpf H /hpf (NONE) Urine Mucus Trace /hpf /hpf Urine HCG, Qual Negative (Negative) 06/16/21 17:22 WBC RBC Hgb Hct MCV MCH MCHC RDW Plt Count MPV Neut % (Auto) Lymph % (Auto) [place] % (Auto) Eos % (Auto) Baso % (Auto) Neut # (Auto) Lymph # (Auto) [place] # (Auto) Eos # (Auto) Baso # (Auto) Nucleated RBC % (a uto) Nucleated RBCs # Sodium 139 mmol/L mmol/L (136-145) Potassium 4.6 mmol/L mmol/L (3.5-5.1) Chloride 104 mmol/L mmol/L (98-107) Carbon Dioxide 21 mmol/L L mmol/ L (22-29) Anion Gap 18.6 (5-19) BUN 12 mg/dL mg/dL (6-20) Creatinine 0.6 mg/dL mg/dL (0.5-0.9) GFR Calculation 105.4 mL/min mL/m in (90-130) Glucose 260 mg/dL H mg/dL (65-115) Calculated Osmolal ity 297 mOsm/kg H mOs m/kg (285-295) Calcium 9.2 mg/dL mg/dL (8.5-10.5) Urine Color Urine Appearance Urine pH Ur Specific Gravit y Urine Protein Urine Glucose (UA) Urine Ketones Urine Blood Urine Nitrate Urine Bilirubin Urine Urobilinogen Ur Leukocyte Laura ase Urine RBC Urine WBC Ur Squamous Epith Cells Amorphous Sediment Urine Bacteria Urine Mucus Urine HCG, Qual Imaging Data^: CT abdomen/pelvis/lumbar: Radiologist's impression: [place] [address] CT Scan Report Signed Patient: Cecily Muniz Unit #: [id number] : 1970 Age/Sex: 51 / F ADM Date: 06/16/21 Loc: ER Room/Bed: Attending Dr: Ordering Provider/Ordering MD: Joanne Iyer Date of Service: 06/16/21 Procedure(s): CT kidney stone 70026 Accession Number(s): [id number] Report Number: [id number] WS: [id number] CT ABDOMEN AND PELVIS NONCONTRAST HISTORY: R sided back pain; eval for stone/pyelo/also look at L spine TECHNIQUE: Imaging performed through the abdomen and pelvis. Coronal and sagittal reformats are submitted. All CT scans at [facility] use at least one of these dose optimization techniques: automated exposure control; mA and/or kV adjustment per patient size (includes targeted exams where dose is matched to clinical indication); or iterative reconstruction. DLP: 1436.04 mGy.cm COMPARISON: 12/13/2020 Lower thorax: Mild atelectasis at the lingula. Benign granuloma LEFT lung base. Heart size is normal. No hiatal hernia. Liver: Normal size liver. No mass or bile duct dilatation. Gallbladder: Prior cholecystectomy. Pancreas: Normal size and attenuation. Normal pancreatic duct. No pancreatitis or mass. Spleen: Normal size with granulomata. 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 Adrenal glands: Normal. No mass. Right kidney: Normal size kidney with no mass or hydronephrosis. Left kidney: Normal size kidney with a few nonobstructing calcifications in the renal pelvis. Aorta: Normal abdominal aorta, no aneurysm or atherosclerosis. No free fluid, intraperitoneal air or significant lymphadenopathy. GI tract: Prior appendectomy and gastric sleeve. No obstruction. Abdominal wall: Negative. No hernia. Pelvis: Uterus is present. LEFT ovarian follicle at 2.2 cm. No free fluid in the pelvis or adenopathy. Osseous structures: Mild curvature lumbar spine. No osteoblastic or osteolytic bone disease. Very mild disc space narrowing in the lumbar spine. CT/CT kidney stone [id number] IMPRESSION: 1. No renal obstruction or evidence for pyelonephritis. 2. Nonobstructing LEFT renal calculi. 3. Prior cholecystectomy, appendectomy and gastric sleeve. 4. No ascites. 5. Very mild lumbar spondylosis with no stenosis or fracture. Dictated By: Tonie Schultz DO Signed By: Tonie Schultz DO Signed Date/Time: 06/16/211437 DD/ 1431 Discharge Plan Discharge Patient Disposition: Home Clinical Impression: UTI (urinary tract infection) Condition: Stable Prescriptions: New Bactrim DS 800-160 mg tablet 1 tab PO BID 14 Days Qty: 28 RF: 0 Zofran 4 mg tablet 4 mg PO TID PRN (Reason: nausea and vomiting) 4 Days Qty: 12 RF: 0 acetaminophen 500 mg tablet 500 mg PO Q6H PRN (Reason: pain) 5 Days Qty: 20 RF: 0 lidocaine 5 % adhesive patch,medicated 1 patch topical DAILY PRN (Reason: pain) 10 Days Qty: 10 RF: 0 orphenadrine citrate 100 mg tablet extended release 100 mg PO BID PRN (Reason: pain) 5 Days Qty: 10 RF: 0 No Action diclofenac sodium 75 mg tablet,delayed release (DR/EC) 75 mg PO BID PRN (Reason: pain) Qty: 60 RF: 0 pantoprazole 40 mg tablet,delayed release (DR/EC) 40 mg PO DAILY Qty: 30 RF: 0 pimecrolimus [Elidel] 1 % cream 1 applic topical BID Qty: 30 RF: 1 hydroxyzine HCl 25 mg tablet 25 mg PO BID PRNRF: 0 cyclobenzaprine 10 mg tablet 10 mg PO TID PRN (Reason: Muscle Spasm) RF: 0 cyanocobalamin (vitamin B-12) 1,000 mcg/mL solution 1,000 mcg SUBCUT Q30D RF: 0 ergocalciferol (vitamin D2) 1,250 mcg (50,000 unit) capsule 1,250 mcg PO Q7D RF: 0 Discharge Orders: Discharge ED (Routine); Ordered 06/16/21 Ordered By: Meghana León Referrals: Samra Alva FNP [Primary Care Provider] - Discharge Diet: Advance as tolerated Discharge Activity: Resume usual activity Patient Instructions: Dysuria (ED) Activity Restrictions/Additional Instructions: Come back to the emergency room if you have any worsening flank pain, fever/chills, nausea/vomiting, or any new concerning complaints. Come back if you cannot hold down the food or if this pain is getting worse. Coding Level of Care Code ED Track And Field Coach for Chg Fwd Exam Comprehensive Documented by User: Meghana León MD 06/19/21 22:29 HPI - Back Pain/Injury General: Chief Complaint: Back Pain/Injury Stated Complaint: SEVERE BACK PAIN Time Seen by Provider: 06/16/21 12:04 PFSH ED PFSH: Medical History (Updated 06/17/21 @ 11:08 by Zeinab Alva LPN) Anxiety and depression Diabetes Dyslipidemia Hypothyroid Metabolic syndrome KRISTYN (obstructive sleep apnea) Surgical History History of carpal tunnel release right Hx of appendectomy Hx of cholecystectomy Hx of gastric bypass Hx of tubal ligation Family History Family/Other Cancer Breast Heart disease Father Diabetes Social History (Updated 06/17/21 @ 09:24 by Zeinab Alva LPN) Smoking and tobacco status: former smoker Quit status (tobacco): has quit using tobacco Year quit tobacco: 2014 Former quit date comment: 0.5 PPD x 15 yrs Second hand smoke exposure: No Alcohol intake: never Lives independently: Yes Household members: children Marital status: service: No Current occupational status: unemployed History of recent travel: No Current gender identity: Female Special kelly needs: No Procedures Nerve Block Nerve Block 1: Time out performed: Yes Local Anesthetic: lidocaine 1%, bupivacaine 0.25% and with epi Amount of anesthesia used (mL): 13 Side: right Nerve Blocks: other (intradermal injection) Procedure Successful: Yes Patient Tolerated Procedure: well Complications: none Additional Comments: total of 13ml of lidocaine w/ epi/ bupivcaine/ and kenalog mixed toegether and injected at the sites of pain sterile after chlorprep and sterile gloving. Course Vital Signs: Vital signs: Vital Signs Temperature 98.9 F 06/16/21 11:55 Pulse Rate 85 06/16/21 18:03 Respiratory Rate 16 06/16/21 18:03 Blood Pressure 140/80 06/16/21 18:03 Pulse Oximetry 97 06/16/21 18:03 MDM - Back Pain/Injury MDM Narrative: Medical decision making narrative: 51-year-old female presents the emergency room with complaints of right-sided back pain. Lab work showed white count of 10.1. On UA, patient is found to have nitrate positive, leukocyte esterase positive, WBC per high-power field suggestive of UTI. Patient is also noted to have 2+ blood. CT abdomen pelvis showed nonobstructive stone without any signs of pyelonephritis. Given flank pain and UTI suggestive of gram-negative infection, this is likely early pyelonephritis. Rx: Bactrim DS x14 days, Zofran as needed nausea vomiting, tylenol/lidocaine patch/norflex PRN back pain Patient complaints of significant back pain difficulty standing. Bedside ultrasound did not show any signs of necrotizing soft tissue infection including abscess/cellulitis/gas patterns. At the present time, do not suspect necrotizing soft tissue infection given findings and symptoms. I performed bedside intradermal injection with significant relief in symptoms for the patient. Please refer to the procedure note. CT showed nonobstructive renal colic. Disposition: Discharge. Patient counseled regarding diagnostic impression, treatment plan. Patient given ED strict return precautions to return for continuation, worsening, or development of new symptoms. Instructed to f/u w/ PCP regarding symptoms today. Patient verbalized understanding. Patient is given strict return precaution for any worsening symptoms of flank pain, nausea/vomiting, diarrhea, dehydration, or any new or concerning complaints at this time. Lab Data: Labs: Lab Results 06/16/21 06/16/21 06/16/21 12:50 12:50 17:22 WBC 10.8 10^3/uL H 10 ^3/uL (4.0-10.0) RBC 4.58 10^6/uL 10^6 /uL (4.1-5.3) Hgb 14.3 g/dL g/dL (11.5-15.3) Hct 44.8 % % (37.0-47.0) MCV 97.8 fl fl (81-99) MCH 31.2 pg pg (28.0-34.0) MCHC 31.9 g/dL g/dL (30.0-36.0) RDW 13.2 % % (12.1-15.1) Plt Count 308 10^3/cmm 10^3 /cmm (130-400) MPV 10.6 fL H fL (7.4-10.4) Neut % (Auto) 90.1 % % Lymph % (Auto) 8.2 % % [place] % (Auto) 0.8 % % Eos % (Auto) 0.2 % % Baso % (Auto) 0.2 % % Neut # (Auto) 9.73 10^3/uL H 10 ^3/uL (1.8-7.7) Lymph # (Auto) 0.9 10^3/uL 10^3/ uL (0.8-4.8) [place] # (Auto) 0.1 10^3/uL L 10^ 3/uL (0.2-0.9) Eos # (Auto) 0.0 10^3/uL 10^3/ uL (0.0-0.8) Baso # (Auto) 0.0 10^3/uL 10^3/ uL (0.0-0.1) Nucleated RBC % (a uto) 0 % % Nucleated RBCs # 0.0 /100WBC /100W BC Sodium Potassium Chloride Carbon Dioxide Anion Gap BUN Creatinine GFR Calculation Glucose Calculated Osmolal ity Calcium Urine Color Yellow (Yellow) Urine Appearance Hazy A (CLEAR) Urine pH 5 (5-7) Ur Specific Gravit y 1.020 (1.005-1.030) Urine Protein Neg (Negative) Urine Glucose (UA) Norm (Normal) Urine Ketones Negative (Negative) Urine Blood 2+ H (Negative) Urine Nitrate Positive H (Negative) Urine Bilirubin Neg (Negative) Urine Urobilinogen Norm mg/dL mg/dL (Negative) Ur Leukocyte Laura ase Negative (Negative) Urine RBC 0-4 /hpf H /hpf (0-2) Urine WBC 15-25 /hpf H /hpf (0-5) Ur Squamous Epith Cells 5-10 /hpf H /hpf (0-5) Amorphous Sediment Not Reportable Urine Bacteria 2+ /hpf H /hpf (NONE) Urine Mucus Trace /hpf /hpf Urine HCG, Qual Negative (Negative) 06/16/21 17:22 WBC RBC Hgb Hct MCV MCH MCHC RDW Plt Count MPV Neut % (Auto) Lymph % (Auto) [place] % (Auto) Eos % (Auto) Baso % (Auto) Neut # (Auto) Lymph # (Auto) [place] # (Auto) Eos # (Auto) Baso # (Auto) Nucleated RBC % (a uto) Nucleated RBCs # Sodium 139 mmol/L mmol/L (136-145) Potassium 4.6 mmol/L mmol/L (3.5-5.1) Chloride 104 mmol/L mmol/L (98-107) Carbon Dioxide 21 mmol/L L mmol/ L (22-29) Anion Gap 18.6 (5-19) BUN 12 mg/dL mg/dL (6-20) Creatinine 0.6 mg/dL mg/dL (0.5-0.9) GFR Calculation 105.4 mL/min mL/m in (90-130) Glucose 260 mg/dL H mg/dL (65-115) Calculated Osmolal ity 297 mOsm/kg H mOs m/kg (285-295) Calcium 9.2 mg/dL mg/dL (8.5-10.5) Urine Color Urine Appearance Urine pH Ur Specific Gravit y Urine Protein Urine Glucose (UA) Urine Ketones Urine Blood Urine Nitrate Urine Bilirubin Urine Urobilinogen Ur Leukocyte Laura ase Urine RBC Urine WBC Ur Squamous Epith Cells Amorphous Sediment Urine Bacteria Urine Mucus Urine HCG, Qual Imaging Data^: Other Imaging: Radiologist's impression: [employer] [id number] [place] [address] [id number] ReportSigned Patient: Cecily Muniz #: [id number]: 1970Acct#:[id number]/Sex: 51 / FADM Date: 06/16/21Loc: ERRoom/Bed:Attending Dr: Ordering Provider/Ordering MD: Meghana León MD Date of Service: 06/16/21 Procedure(s): US soft tissue/extremity 67491 Accession Number(s): [id number] Report Number: [id number] PROCEDURE INFORMATION: Exam: US Left Non-Vascular Joint or Other Extremity Structure Exam date and time: 06/16/2021 5:15 PM Age: 51 years old Clinical indication: Pain: Lt lower back; Patient HX: 10 of 10 soft tissue pain; Additional info: Eval for any soft tissue infection TECHNIQUE: Imaging protocol: Left US joint or other nonvascular extremity structure or structures. Real-time ultrasound with image documentation. Limited study. Exam focused on the lower extremity in the region of clinical interest. COMPARISON: No relevant prior studies available. FINDINGS: Soft tissues: Unremarkable. No edema. No fluid collection. No mass. US/US soft tissue/extremity [id number] IMPRESSION: No pathologic findings. Radiation Dose CTDIVOL = (mGy): DLP = (mGy-cm) Dictated By:Rudolph Fields MDSigned By:Rudolph iFelds MDSigned Date/Time:06/16/21 1911DD/ 1715 [employer] [id number] [place] [id number] Scan ReportSigned Patient: Cecily Muniz #: [id number]: 1970Acct#:[id number]/Sex: 51 / FADM Date: 06/16/21Loc: ERRoom/Bed:Attending Dr: Ordering Provider/Ordering MD: Joanne Iyer Date of Service: 06/16/21 Procedure(s): CT kidney stone 60471 Accession Number(s): [id number] Report Number: [id number] WS: [id number] CT ABDOMEN AND PELVIS NONCONTRAST HISTORY: R sided back pain; eval for stone/pyelo/also look at L spine TECHNIQUE: Imaging performed through the abdomen and pelvis. Coronal and sagittal reformats are submitted. [facility] one of these dose optimization techniques: automated exposure control; mA and/or kV adjustment per patient size (includes targeted exams where dose is matched to clinical indication); or iterative reconstruction. DLP: 1436.04 mGy.cm COMPARISON: 12/13/2020 Lower thorax: Mild atelectasis at the lingula. Benign granuloma LEFT lung base. Heart size is normal. No hiatal hernia. Liver: Normal size liver. No mass or bile duct dilatation. Gallbladder: Prior cholecystectomy. Pancreas: Normal size and attenuation. Normal pancreatic duct. No pancreatitis or mass. Spleen: Normal size with granulomata. 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 Adrenal glands: Normal. No mass. Right kidney: Normal size kidney with no mass or hydronephrosis. Left kidney: Normal size kidney with a few nonobstructing calcifications in the renal pelvis. Aorta: Normal abdominal aorta, no aneurysm or atherosclerosis. No free fluid, intraperitoneal air or significant lymphadenopathy. GI tract: Prior appendectomy and gastric sleeve. No obstruction. Abdominal wall: Negative. No hernia. Pelvis: Uterus is present. LEFT ovarian follicle at 2.2 cm. No free fluid in the pelvis or adenopathy. Osseous structures: Mild curvature lumbar spine. No osteoblastic or osteolytic bone disease. Very mild disc space narrowing in the lumbar spine. CT/CT kidney stone [id number] IMPRESSION: 1. No renal obstruction or evidence for pyelonephritis. 2. Nonobstructing LEFT renal calculi. 3. Prior cholecystectomy, appendectomy and gastric sleeve. 4. No ascites. 5. Very mild lumbar spondylosis with no stenosis or fracture. Dictated By:Tonie Schultz DOSigned By:Tonie Schultz DOSigned Date/Time:06/16/218DD/ 30 Discharge Plan Discharge Patient Disposition: Home Clinical Impression: UTI (urinary tract infection) Condition: Stable Prescriptions: New Bactrim DS 800-160 mg tablet 1 tab PO BID 14 Days Qty: 28 RF: 0 Zofran 4 mg tablet 4 mg PO TID PRN (Reason: nausea and vomiting) 4 Days Qty: 12 RF: 0 acetaminophen 500 mg tablet 500 mg PO Q6H PRN (Reason: pain) 5 Days Qty: 20 RF: 0 lidocaine 5 % adhesive patch,medicated 1 patch topical DAILY PRN (Reason: pain) 10 Days Qty: 10 RF: 0 orphenadrine citrate 100 mg tablet extended release 100 mg PO BID PRN (Reason: pain) 5 Days Qty: 10 RF: 0 No Action diclofenac sodium 75 mg tablet,delayed release (DR/EC) 75 mg PO BID PRN (Reason: pain) Qty: 60 RF: 0 pantoprazole 40 mg tablet,delayed release (DR/EC) 40 mg PO DAILY Qty: 30 RF: 0 pimecrolimus [Elidel] 1 % cream 1 applic topical BID Qty: 30 RF: 1 hydroxyzine HCl 25 mg tablet 25 mg PO BID PRNRF: 0 cyclobenzaprine 10 mg tablet 10 mg PO TID PRN (Reason: Muscle Spasm) RF: 0 cyanocobalamin (vitamin B-12) 1,000 mcg/mL solution 1,000 mcg SUBCUT Q30D RF: 0 ergocalciferol (vitamin D2) 1,250 mcg (50,000 unit) capsule 1,250 mcg PO Q7D RF: 0 Discharge Orders: Discharge ED (Routine); Ordered 06/16/21 Ordered By: Meghana León Referrals: Samra Alva FNP [Primary Care Provider] - Discharge Diet: Advance as tolerated Discharge Activity: Resume usual activity Patient Instructions: Dysuria (ED) Activity Restrictions/Additional Instructions: Come back to the emergency room if you have any worsening flank pain, fever/chills, nausea/vomiting, or any new concerning complaints. Come back if you cannot hold down the food or if this pain is getting worse. Coding Level of Care Code ED Track And Field Coach for Chg Fwd Exam Comprehensive
[2021-06-16 12:40] VITALS: RESP 24
[2021-06-16] MEDS: orphenadrine 30 mg/mL Inj 2 mL 60 MG IM (12:40)
[2021-06-16] MEDS: morphine 4 mg/mL SDV 1 mL IM (12:40)
[2021-06-16] MEDS: dexamethasone 10 mg/mL INJ 8 MG IM (12:40)
[2021-06-16 13:26] LABS: Add Urine Microscopic? YES; Bilirubin Urine Neg (Negative); Blood Urine 2+ (Negative); Glucose Urine UA Norm (Normal); Ketones Urine Negative (Negative); Leukocyte Esterase Urine Negative (Negative); Nitrate Urine Positive (Negative); Protein Urine Neg (Negative); Urine Appearance Hazy (CLEAR); Urine Color Yellow (Yellow); Urobilinogen Urine Norm (Negative); pH Urine 5 (5-7)
--- NOTE | 2021-06-16 13:36 | CT_ITS ---
WS: [id number] CT ABDOMEN AND PELVIS NONCONTRAST HISTORY: R sided back pain; eval for stone/pyelo/also look at L spine TECHNIQUE: Imaging performed through the abdomen and pelvis. Coronal and sagittal reformats are submi tted. All CT scans at [facility] use at least one of these dose optimization techniques: auto mated exposure control; mA and/or kV adjustment per patient size (includes targeted exams where dose is matched to clinical indication); or iterative reconstruction. DLP: 1436.04 mGy.cm COMPARISON: 12/13/2020 Lower thorax: Mild atelectasis at the lingula. Benign granuloma LEFT lung base. Heart size is normal. No hiatal hernia. Liver: Normal size liver. No mass or bile duct dilatation. Gallbladder: Prior cholecystectomy. Pancreas: Normal size and attenuation. Normal pancreatic duct. No pancreatitis or mass. Spleen: Normal size with granulomata. 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 Adrenal glands: Normal. No mass. Right kidney: Normal size kidney with no mass or hydronephrosis. Left kidney: Normal size kidney with a few nonobstructing calcifications in the renal pelvis. Aorta: Normal abdominal aorta, no aneurysm or atherosclerosis. No free fluid, intraperitoneal air or significant lymphadenopathy. GI tract: Prior appendectomy and gastric sleeve. No obstruction. Abdominal wall: Negative. No hernia. Pelvis: Uterus is present. LEFT ovarian follicle at 2.2 cm. No free fluid in the pelvis or adenopathy . Osseous structures: Mild curvature lumbar spine. No osteoblastic or osteolytic bone disease. Very mil d disc space narrowing in the lumbar spine. CT/CT kidney stone [id number] IMPRESSION: 1. No renal obstruction or evidence for pyelonephritis. 2. Nonobstructing LEFT renal calculi. 3. Prior cholecystectomy, appendectomy and gastric sleeve. 4. No ascites. 5. Very mild lumbar spondylosis with no stenosis or fracture.
[2021-06-16 14:04] LABS: Add Urine Culture? Yes; Bacteria Urine 2+ /hpf; Mucus Urine TRACE /hpf; RBC Urine 0-4 /hpf (0-2); WBC Urine 15-25 /hpf (0-5)
[2021-06-16] MEDS: ketorolac 30 mg/mL INJ IM (15:09)
[2021-06-16] MEDS: diazePAM 5 mg Tablet PO (15:09)
--- NOTE | 2021-06-16 17:15 | USR_ITS ---
PROCEDURE INFORMATION: Exam: US Left Non-Vascular Joint or Other Extremity Structure Exam date and time: 06/16/2021 5:15 PM Age: 51 years old Clinical indication: Pain: Lt lower back; Patient HX: 10 of 10 soft tissue pain; Additional info: Eval for any soft tissue infection TECHNIQUE: Imaging protocol: Left US joint or other nonvascular extremity structure or structures. Real-time ultrasound with image documentation. Limited study. Exam focused on the lower extremity in the region of clinical interest. COMPARISON: No relevant prior studies available. FINDINGS: Soft tissues: Unremarkable. No edema. No fluid collection. No mass. US/US soft tissue/extremity [id number] IMPRESSION: No pathologic findings. Radiation Dose CTDIVOL = (mGy): DLP = (mGy-cm)
[2021-06-16 17:37] LABS: Basophils % 0.2 %; Eosinophils % 0.2 %; Hematocrit 44.8 % (37.0-47.0); Hemoglobin 14.3 g/dL (11.5-15.3); Lymphocytes # 0.9 10^3/uL (0.8-4.8); Lymphocytes % 8.2 %; Mean Corpuscular HGB Conc 31.9 g/dL (30.0-36.0); Mean Corpuscular Hemoglobin 31.2 pg (28.0-34.0); Mean Corpuscular Volume 97.8 fl (81-99); Mean Platelet Volume 10.6 fL (7.4-10.4); Monocytes # 0.1 10^3/uL (0.2-0.9); Monocytes % 0.8 %; Neutrophils # 9.73 10^3/uL (1.8-7.7); Neutrophils % 90.1 %; Nucleated Red Blood Cells % 0 %; Platelet Count 308 10^3/cmm (130-400); Red Blood Count 4.58 10^6/uL (4.1-5.3); Red Cell Distribution Width 13.2 % (12.1-15.1); White Blood Count 10.8 10^3/uL (4.0-10.0)
[2021-06-16 17:56] LABS: Anion Gap 18.6 (5-19); Blood Urea Nitrogen 12 mg/dL (6-20); Calcium 9.2 mg/dL (8.5-10.5); Carbon Dioxide 21 mmol/L (22-29); Chloride 104 mmol/L (98-107); Creatinine Clr Calc Pharmacy 104.3038; Glomerular Filtration Rate 105.4 mL/min (90-130); Glucose 260 mg/dL (65-115); Osmolality Calculated 297 mOsm/kg (285-295); Potassium 4.6 mmol/L (3.5-5.1); Sodium 139 mmol/L (136-145)
[2021-06-16 18:03] VITALS: BP 140/80; PULSE 85; RESP 16; O2SAT 97
[2021-06-16] MEDS: triamcinolone 40 mg/mL SDV IM (18:45)
== END 2021-06-16 18:58 | disposition home or self-care (01) ==
PROVIDERS: Physician Assistant; Emergency Provider Emergency Medicine; PCP Nurse Practitioner Family
DX: N39.0 Urinary tract infection, site not specified (principal); E11.9 Type 2 diabetes mellitus without complications; E78.5 Hyperlipidemia, unspecified; E03.9 Hypothyroidism, unspecified; F41.9 Anxiety disorder, unspecified; F32.A Depression, unspecified; Z87.891 Personal history of nicotine dependence
CPT/HCPCS: 74176; 76882; 80048; 81001; 81025; 85025; 87077; 87086; 87186; 96372; 99284; J1100; J1885; J2270; J2360; J3301; J3490

== ENCOUNTER → 2021-06-17 08:44 | Outpatient (BNVA) | payer MEDICAID, SELFPAY | PROVIDERS: PCP Family Medicine; Visit Provider Internal Medicine | DX: R70.0 Elevated erythrocyte sedimentation rate (principal); M25.50 Pain in unspecified joint; M54.50 Low back pain, unspecified; Z79.899 Other long term (current) drug therapy; E66.9 Obesity, unspecified; Z68.31 Body mass index [BMI] 31.0-31.9, adult; K90.0 Celiac disease; R53.83 Other fatigue; Z87.891 Personal history of nicotine dependence | CPT/HCPCS: 99204 ==

== ENCOUNTER 2021-06-17 10:21 | Outpatient (CLI) | payer MEDICAID, SELFPAY ==
--- NOTE | 2021-06-17 10:43 | XR_ITS ---
WS: [id number] Exam: XR thoracic spine 3V* [id number] Date/Time of Exam: 06/17/2021 10:44 AM Reason For Exam: R70.0 - Elevated erythrocyte sedimentation rate Comparison 05/11/2021. Old compression fracture of T4 is noted without posterior displacement. No acute fracture is seen. Mi ld spondylosis. Slight dextroscoliosis of the upper T-spine. Paraspinal soft tissues appear normal. XR/XR thoracic spine 3V* [id number] IMPRESSION: 1. Old nondisplaced compression fracture of T4. About 30% loss of vertebral hei ght. 2. No acute fracture seen. 3. Mild degenerative changes and mild scoliosis
--- NOTE | 2021-06-17 10:43 | XR_ITS ---
WS: [id number] Exam: XR hand LT 2V [id number] Date/Time of Exam: 06/17/2021 10:44 AM Reason For Exam: R70.0 - Elevated erythrocyte sedimentation rate Findings: No fractures, soft tissue swelling, or unusual calcifications are noted. The hand shows normal bony alignment. There is no irregularity of the bony architecture. XR/XR hand LT 2V [id number] IMPRESSION: Normal left hand.
--- NOTE | 2021-06-17 10:43 | XR_ITS ---
WS: [id number] Exam: XR hand RT 2V [id number] Date/Time of Exam: 06/17/2021 10:44 AM Reason For Exam: R70.0 - Elevated erythrocyte sedimentation rate Findings: No fractures, soft tissue swelling, or unusual calcifications are noted. The hand shows normal bony alignment. There is no irregularity of the bony architecture. XR/XR hand RT 2V [id number] IMPRESSION: Normal right hand.
--- NOTE | 2021-06-17 10:43 | XR_ITS ---
WS: [id number] Exam: XR sacroiliac jts m 3V [id number] Date/Time of Exam: 06/17/2021 10:44 AM Reason For Exam: R70.0 - Elevated erythrocyte sedimentation rate No fracture or dislocation. [id number] DJD of the SI joints. The SI joints are open. No sign of bone destruction. XR/XR sacroiliac jts m 3V [id number] IMPRESSION: 1. Mild bilateral SI joint DJD. No fracture or other significant finding.
--- NOTE | 2021-06-17 10:43 | XR_ITS ---
WS: [id number] Exam: XR lumbar spine 2-3V* [id number] Date/Time of Exam: 06/17/2021 10:44 AM Reason For Exam: R70.0 - Elevated erythrocyte sedimentation rate No fracture or dislocation. Moderate degenerative narrowing of the L1-2 disc space. Mild spondylosis. Posterior elements are intact. Postoperative changes in the upper right and left abdomen. XR/XR lumbar spine 2-3V* [id number] IMPRESSION: 1. No fracture or malalignment. 2. Degenerative narrowing of the L1-2 disc. Mild spondylosis.
--- NOTE | 2021-06-17 10:43 | XR_ITS ---
WS: [id number] Exam: XR cervical spine fl/ex [id number] Date/Time of Exam: 06/17/2021 10:44 AM Reason For Exam: R70.0 - Elevated erythrocyte sedimentation rate No acute fracture or dislocation. No flexion or extension instability identified. Mild spondylosis fr om C5 to C7. There is straightening and reversal of the normal cervical lordosis. There may be some w idening of the prevertebral soft tissues from C4 to C7. This could also be related to positioning. XR/XR cervical spine fl/ex [id number] IMPRESSION: 1. No fracture or malalignment. No flexion or extension instability. 2. There may be some widening of the prevertebral soft tissues from C4 to C7. T his could also be due to positioning. A neck mass, lymphadenopathy or inflammat ory process could have similar appearance. Correlation with clinical findings r ecommended.
[2021-06-17 12:32] LABS: C Reactive Protein 2.9 mg/L (0.0-4.9); Creatine Phosphokinase 67 U/L (26-192); Ferritin 107 ng/mL (15-150); Iron 123 ug/dL (37-145)
[2021-06-17 12:48] LABS: Vitamin B12 700 pg/mL (232-1245)
[2021-06-17 12:50] LABS: Hepatitis B Core AB, Total Non-Reactive (Nonreactive); Hepatitis C Virus Antibody Non-Reactive (Nonreactive)
[2021-06-17 13:03] LABS: Hepatitis B Surface Antigen Non-Reactive (Nonreactive)
[2021-06-18 11:58] LABS: COMPLEMENT COMPONENT C3C 184 mg/dL (83-193); COMPLEMENT COMPONENT C4C 38 mg/dL (15-57)
[2021-06-18 12:32] LABS: COMPLEMENT, TOTAL (CH50) >60 U/mL (31-60)
[2021-06-18 16:07] LABS: Cyclic Citrullinated Peptide <16 UNITS
[2021-06-18 22:33] LABS: ANA PATTERN Nuclear, Nucleolar; ANA SCREEN, IFA POSITIVE (NEGATIVE)
[2021-06-19 11:19] LABS: CENTROMERE B ANTIBODY <1.0 NEG AI (<1.0 NEG); JO-1 ANTIBODY <1.0 NEG AI (<1.0 NEG); RNP ANTIBODY <1.0 NEG AI (<1.0 NEG); SCL-70 ANTIBODY <1.0 NEG AI (<1.0 NEG); SJOGREN'S ANTIBODY (SS-A) <1.0 NEG AI (<1.0 NEG); SM ANTIBODY <1.0 NEG AI (<1.0 NEG); SS-B <1.0 NEG AI (<1.0 NEG)
[2021-06-19 12:13] LABS: THYROID PEROXIDASE ANTIBODIES 1 IU/mL (<9)
[2021-06-20 11:28] LABS: DNA AB (DS) CRITHIDIA,IFA NEGATIVE (NEGATIVE)
[2021-06-20 22:18] LABS: Immunoglobulin A 204 mg/dL (47-310)
[2021-06-23 16:23] LABS: Gliadin Ab.IgA 3.5 U/mL; Gliadin Ab.IgG <1.0 U/mL; Tissue Transglutaminase IgA Ab <1.0 U/mL; Tissue transglutaminase Ab.IgG <1.0 U/mL
== END 2021-06-17 10:22 | disposition home or self-care (01) ==
LOC: RAD 10:31
PROVIDERS: PCP Family Medicine; Visit Provider Internal Medicine
DX: R70.0 Elevated erythrocyte sedimentation rate (principal); R07.81 Pleurodynia; R53.83 Other fatigue; Z79.899 Other long term (current) drug therapy; Z11.59 Encounter for screening for other viral diseases
CPT/HCPCS: 72040; 72072; 72100; 72202; 73120; 82550; 82607; 82728; 82784; 83516; 83540; 83735; 84100; 86140; 86160; 86162; 86200; 86235; 86255; 86376; 86431; 86704; 86803; 87340

== ENCOUNTER → 2021-07-03 13:26 | Outpatient (BNVA) | payer MEDICAID, SELFPAY | PROVIDERS: PCP Family Medicine; Visit Provider Internal Medicine | DX: R76.8 Other specified abnormal immunological findings in serum (principal); M54.50 Low back pain, unspecified; M46.1 Sacroiliitis, not elsewhere classified; M54.2 Cervicalgia; Z87.891 Personal history of nicotine dependence | CPT/HCPCS: 99214 ==

== ENCOUNTER → 2021-07-22 08:53 | Outpatient (BNVA) | payer MEDICAID, SELFPAY | PROVIDERS: PCP Family Medicine; Referring Provider Internal Medicine; Visit Provider Anesthesiology Pain Medicine | DX: G89.29 Other chronic pain (principal); M54.16 Radiculopathy, lumbar region; M54.2 Cervicalgia; G43.909 Migraine, unspecified, not intractable, without status migrainosus; Z79.891 Long term (current) use of opiate analgesic | CPT/HCPCS: 99205 ==

== ENCOUNTER 2021-08-06 16:30 | Outpatient (CLI) | payer MEDICAID, SELFPAY ==
--- NOTE | 2021-08-06 16:45 | MR_ITS ---
WS: [id number] MRI CERVICAL SPINE NONCONTRAST HISTORY: M54.2 - Cervicalgia COMPARISON: None available. Technique: Multiplanar, multisequence noncontrast imaging of the cervical spine. Mild straightening of the normal cervical lordosis. No marrow edema or fracture. Mild disc space narr owing and desiccation, most significant at C5-6. Signal within the cervical cord is normal. Visualized posterior fossa is unremarkable. Craniocervical junction, C1 and C2 relationship, odontoid process and soft tissues are normal. C2-C3: Normal. C3-C4: Very slight disc bulging. No stenosis. C4-C5: Mild annular disc bulging and circumferential osteophytosis. Very shallow central disc protrus ion. Small bilateral disc osteophyte complexes within the neural foramen and mild facet arthritis. Th ere is moderate bilateral foraminal stenosis, RIGHT greater than LEFT. C5-C6: Moderate diffuse annular disc bulging and osteophytic ridging. Larger central disc protrusion contacting the ventral cervical cord. No displacement. There is mild central and bilateral foraminal stenosis. C6-C7: Very shallow central disc protrusion. Mild bilateral facet joint arthritis. Slight bilateral f oraminal narrowing. No significant stenosis. C7-T1: Normal. Paraspinal soft tissue are normal. MR/MR cervical spin wo con* [id number] IMPRESSION: 1. Moderate central disc protrusion with additional mild annular disc bulging and osteophytic ridging at C5-6. Disc contacts the ventral cord but no displace ment. 2. Mild central and bilateral foraminal stenosis at C5-6 due to disc and osteo phyte disease. 3. Moderate bilateral foraminal stenosis, RIGHT greater than LEFT due to disc osteophyte disease at C4-5. 4. Mild facet joint arthritis from C4-5 to C6-7.
== END 2021-08-06 16:31 | disposition home or self-care (01) ==
LOC: RADSHAW 16:33
PROVIDERS: PCP Family Medicine; Visit Provider Internal Medicine
DX: M54.2 Cervicalgia (principal)
CPT/HCPCS: 72141

== ENCOUNTER → 2021-08-14 08:50 | Outpatient (BNVA) | payer MEDICAID, SELFPAY | PROVIDERS: PCP Family Medicine; Visit Provider Anesthesiology Pain Medicine | DX: G89.29 Other chronic pain (principal); M54.2 Cervicalgia; M54.16 Radiculopathy, lumbar region; R76.8 Other specified abnormal immunological findings in serum; F15.10 Other stimulant abuse, uncomplicated; G43.909 Migraine, unspecified, not intractable, without status migrainosus; Z87.891 Personal history of nicotine dependence | CPT/HCPCS: 99214 ==

== ENCOUNTER 2021-10-01 08:38 | Outpatient (CLI) | payer MEDICAID, SELFPAY ==
[2021-10-01 09:09] LABS: Basophils % 0.6 %; Eosinophils # 0.1 10^3/uL (0.0-0.8); Hemoglobin 14.1 g/dL (11.5-15.3); Lymphocytes # 1.9 10^3/uL (0.8-4.8); Lymphocytes % 27.8 %; Mean Corpuscular Hemoglobin 30.2 pg (28.0-34.0); Mean Corpuscular Volume 94.2 fl (81-99); Mean Platelet Volume 10.1 fL (7.4-10.4); Monocytes # 0.7 10^3/uL (0.2-0.9); Monocytes % 9.8 %; Neutrophils # 3.97 10^3/uL (1.8-7.7); Neutrophils % 59.5 %; Nucleated Red Blood Cells % 0 %; Platelet Count 284 10^3/cmm (130-400); Red Blood Count 4.67 10^6/uL (4.1-5.3); Red Cell Distribution Width 12.8 % (12.1-15.1); White Blood Count 6.7 10^3/uL (4.0-10.0)
[2021-10-01 09:39] LABS: Alanine Aminotransferase 13 U/L (0-33); Albumin Level 4.4 g/dL (3.5-5.2); Alkaline Phosphatase 86 IU/L (35-105); Anion Gap 17.3 (5-19); Aspartate Amino Transferase 12 U/L (0-32); Blood Urea Nitrogen 11 mg/dL (6-20); C Reactive Protein 3.4 mg/L (0.0-4.9); Calcium 9.9 mg/dL (8.5-10.5); Carbon Dioxide 23 mmol/L (22-29); Chloride 104 mmol/L (98-107); Globulin 2.5 g/dL (1.3-4.6); Glomerular Filtration Rate 130.1 mL/min (90-130); Glucose 116 mg/dL (65-115); Osmolality Calculated 290 mOsm/kg (285-295); Potassium 4.3 mmol/L (3.5-5.1); Sodium 140 mmol/L (136-145); Total Bilirubin 0.4 mg/dL (0.15-1.2); Total Protein 6.9 g/dL (6.6-8.7)
[2021-10-01 09:51] LABS: 25 Hydroxy Vitamin D 25 ng/mL (30-100)
[2021-10-01 10:33] LABS: Erythrocyte Sedimentation Rate 16 mm/hr (0-15)
[2021-10-03 14:28] LABS: HLA-B27 NEGATIVE (NEGATIVE)
== END 2021-10-01 08:39 | disposition home or self-care (01) ==
LOC: LAB 08:50
PROVIDERS: PCP Family Medicine; Visit Provider Internal Medicine
DX: M54.2 Cervicalgia (principal); G89.29 Other chronic pain; M54.9 Dorsalgia, unspecified; R70.0 Elevated erythrocyte sedimentation rate; Z79.899 Other long term (current) drug therapy; M45.0 Ankylosing spondylitis of multiple sites in spine; M46.1 Sacroiliitis, not elsewhere classified; M54.50 Low back pain, unspecified; R76.8 Other specified abnormal immunological findings in serum
CPT/HCPCS: 36415; 80053; 82306; 85025; 85651; 86140; 86812

== ENCOUNTER → 2021-10-03 09:53 | Outpatient (BNVA) | payer MEDICAID, SELFPAY | PROVIDERS: PCP Family Medicine; Visit Provider Internal Medicine | DX: R70.0 Elevated erythrocyte sedimentation rate (principal); R76.8 Other specified abnormal immunological findings in serum; M48.02 Spinal stenosis, cervical region; M54.50 Low back pain, unspecified; E55.9 Vitamin D deficiency, unspecified; Z87.891 Personal history of nicotine dependence | CPT/HCPCS: 99213 ==

== ENCOUNTER → 2021-10-13 12:40 | Outpatient (BNVA) | payer MEDICAID, SELFPAY | PROVIDERS: PCP Family Medicine; Visit Provider Anesthesiology Pain Medicine | DX: Z87.891 Personal history of nicotine dependence (principal); M54.12 Radiculopathy, cervical region | CPT/HCPCS: 62321; J1100 ==

== ENCOUNTER → 2021-11-03 08:26 | Outpatient (BNVA) | payer OTHER, MEDICAID, SELFPAY | PROVIDERS: PCP Family Medicine; Visit Provider Psychiatry & Neurology Psychiatry | DX: F43.12 Post-traumatic stress disorder, chronic (principal); F33.1 Major depressive disorder, recurrent, moderate | CPT/HCPCS: 99204 ==

== ENCOUNTER → 2021-12-25 07:26 | Outpatient (BNVA) | payer OTHER, MEDICAID, SELFPAY | PROVIDERS: PCP Family Medicine; Visit Provider Psychiatry & Neurology Psychiatry | DX: F33.1 Major depressive disorder, recurrent, moderate (principal); F43.12 Post-traumatic stress disorder, chronic | CPT/HCPCS: 99214 ==

== ENCOUNTER → 2022-01-14 14:32 | Outpatient (BNVA) | payer OTHER, MEDICAID, SELFPAY | PROVIDERS: PCP Family Medicine; Visit Provider Surgery | DX: Z90.3 Acquired absence of stomach [part of] (principal) | CPT/HCPCS: 99212 ==

== ENCOUNTER 2023-03-21 21:57 | Emergency (ER) | payer MEDICAID, SELFPAY ==
[2023-03-21 22:07] VITALS: PULSE 68; RESP 16; TEMP 36.6; O2SAT 97; BMI 29.2
--- NOTE | 2023-03-21 22:16 | ED_ITS ---
HPI - Allergic Reaction General: Chief complaint: Allergic Reaction Stated complaint: bites all over Time Seen by Provider: 03/21/23 22:08 History of Present Illness: HPI narrative: 53-year-old female comes in today with multiple insect bites generalized to the body. Patient been staying at her son's house and started having an eruption this morning with more bites coming out throughout the day. Patient appears nontoxic. Patient appears in no respiratory difficulty. Patient appears in no pain. Review of Systems Const: Denies: fever(s) Card: Denies: chest pain Resp: Denies: dyspnea Skin/Breast: Reports: pruritus and new lesions [facility] ED PFS: Medical History (Updated 03/21/23 @ 22:43 by JOSE RAUL Betts) Anxiety and depression Diabetes Dyslipidemia Hypothyroid Metabolic syndrome KRISTYN (obstructive sleep apnea) Surgical History History of carpal tunnel release right Hx of appendectomy Hx of cholecystectomy Hx of gastric bypass Hx of tubal ligation Family History Family/Other Cancer Breast Heart disease Father Diabetes Social History Smoking and tobacco status: former smoker Quit status (tobacco): has quit using tobacco Year quit tobacco: 2014 Former quit date comment: 0.5 PPD x 15 yrs Second hand smoke exposure: No Smoking risk assessment/counseling performed?: Yes Alcohol intake: never Substance/Drug Use: never Lives independently: Yes Household members: children Marital status: Highest education level completed: High School Graduate service: No Current occupational status: unemployed Current occupational exposures/hazards: No Current gender identity: Female Special kelly needs: No Physical Exam Const: COMMON NORMALS: alert HENMT: COMMON NORMALS: normocephalic HEAD & SCALP: normocephalic Neck/C-Spine: COMMON NORMALS: full ROM Resp: COMMON NORMALS: normal respiratory effort and clear to auscultation bilaterally AUSCULTATION: clear to auscultation bilaterally Cardio: COMMON NORMALS: regular rate and regular rhythm RATE: regular rate RHYTHM: regular rhythm GI: COMMON NORMALS: non-tender Back/Pelvis: COMMON NORMALS: thoracic and lumbar spine normal to inspection Extremity: COMMON NORMALS: no pedal edema Neuro: SENSORIUM/ORIENTATION: Yes alert Skin: LESIONS: lesion noted (Multiple erythematous lesion with centralized punctate dalia.) Course Vital Signs: Vital signs: Vital Signs Temperature 98 F 03/21/23 22:07 Pulse Rate 68 03/21/23 22:07 Respiratory Rate 16 03/21/23 22:07 Pulse Oximetry 97 03/21/23 22:07 MDM - Allergic Reaction Medical Decision Making Patient has of several lesions that have approximately 2 cm of redness with a centralized punctate lesion. No tenderness is noted on palpation of the lesions. No significant induration is noted. Clear fluid is noted on the central lesion. Lesions are clustered in folds of skin and along bra strap and waistband of pants. Differential diagnosis includes but not limited to bedbug bites, chigger bites, mosquito bites, contact dermatitis, anxiety, parasitosis. I believe patient probably has some chigger bites just to the areas that are affected. Since patient is staying at her son's house it may also be bedbugs or fleas. Patient denies fleas or bedbugs. Recommend steroid cream to help with i tching and inflammation of the insect bites. Recommend Benadryl or Claritin for the itching. Patient was given diphenhydramine 50 mg in the emergency room and 10 mg of dexamethasone. Patient was recommended to follow-up with primary care. Patient reported understanding. Discharge Plan Discharge Patient Disposition: Home Clinical Impression: Insect bites Qualifiers: Encounter type: initial encounter Site of insect bite: unspecified site Qualified Code(s): W57.XXXA - Bitten or stung by nonvenomous insect and other nonvenomous arthropods, initial encounter Condition: Stable Prescriptions: New triamcinolone acetonide 0.1 % cream 1 applic topical BID Qty: 30 0RF No Action cholecalciferol (vitamin D3) 1,250 mcg (50,000 unit) capsule 50,000 unit PO .qweek Qty: 14 0RF hydroxyzine HCl 25 mg tablet 25 mg PO BID PRN bupropion HCl [Wellbutrin XL] 300 mg tablet extended release 24 hr 300 mg PO QAM Qty: 30 2RF naltrexone 50 mg tablet 50 mg PO DAILY Qty: 30 2RF trazodone 100 mg tablet 300 mg PO .HS PRN (Reason: insomnia) Qty: 90 2RF Discharge Orders: Discharge ED (Routine); Ordered 03/21/23 Ordered By: Mahesh Romero Referrals: Gabby Trivedi MD [Primary Care Provider] - Patient Instructions: Chigger Bite (ED) Activity Restrictions/Additional Instructions: Use Benadryl 25 mg every 4 hours as needed for itching. If Benadryl makes use too sleepy you can use 1 or 2 tablets of Claritin twice a day to control itching and rash. Drink plenty of water. Use triamcinolone cream to each of the lesions until clear. Monitor for signs of infection such as pain and purulent drainage. Coding Level of Care Code ED Personnel Generalist Manager for [facility]
[2023-03-21] MEDS: diphenhydrAMINE 50 mg/mL SDV 1mL IM (22:57)
[2023-03-21] MEDS: dexamethasone 10 mg/mL INJ IM (22:58)
[2023-03-21 23:11] VITALS: PULSE 64; RESP 16; O2SAT 96
== END 2023-03-21 23:08 | disposition home or self-care (01) ==
PROVIDERS: Emergency Provider Nurse Practitioner Family; PCP Family Medicine
DX: S30.861A Insect bite (nonvenomous) of abdominal wall, initial encounter (principal); W57.XXXA Bitten or stung by nonvenomous insect and other nonvenomous arthropods, initial encounter; Z87.891 Personal history of nicotine dependence; E11.9 Type 2 diabetes mellitus without complications; E78.5 Hyperlipidemia, unspecified
CPT/HCPCS: 96372; 99284; J1100; J1200

== ENCOUNTER → 2024-01-06 08:57 | Outpatient (BNVA) | payer BC, MEDICAID, SELFPAY | PROVIDERS: PCP Family Medicine; Visit Provider Family Medicine | DX: N39.0 Urinary tract infection, site not specified (principal); R30.0 Dysuria; Z90.3 Acquired absence of stomach [part of] | CPT/HCPCS: 81003; 87077; 87086; 87184 ==

== ENCOUNTER → 2024-01-18 15:42 | Outpatient (BNVA) | payer BC, MEDICAID, SELFPAY | PROVIDERS: PCP Family Medicine; Visit Provider Family Medicine | DX: N39.0 Urinary tract infection, site not specified (principal) | CPT/HCPCS: 81003; 87077; 87086; 87184 ==

== ENCOUNTER 2024-01-26 16:59 | Emergency (ER) | payer BC, MEDICAID, SELFPAY ==
[2024-01-26 17:02] VITALS: BP 107/69; PULSE 81; TEMP 36.7; O2SAT 98; BMI 25.0
--- NOTE | 2024-01-26 18:15 | CTR_ITS ---
PROCEDURE INFORMATION: Exam: CT Abdomen And Pelvis With Contrast Exam date and time: 01/26/2024 7:14 PM Age: 54 years old Clinical indication: Other: Hematuria; Abdominal pain; Flank; Other: Bilateral; Prior surgery; Surgery date: 6+ months; Surgery type: HX of tubal ligation. HX of appendectomy. HX of cholecystectomy. HX of gastric bypass; Additional info: Lower abd pain, recurrent vaginal discharge/hematuria TECHNIQUE: Imaging protocol: Computed tomography of the abdomen and pelvis with contrast. Radiation optimization: All CT scans at this facility use at least one of these dose optimization techniques: automated exposure control; mA and/or kV adjustment per patient size (includes targeted exams where dose is matched to clinical indication); or iterative reconstruction. Contrast material: OMNI 350; Contrast volume: 80 ml; Contrast route: INTRAVENOUS (IV); COMPARISON: CT kidney stone [id number] 06/16/2021 2:16 PM RADIATION DOSE METRICS: Total DLP (mGy-cm): 454 FINDINGS: Lungs: Left basilar calcified granuloma. Calcified left inferior hilar lymph nodes. Lung bases are otherwise clear. Heart: Heart size is within normal limits. There is no pericardial effusion or pericardial thickening. Liver: The liver is normal. No hepatic masses are identified. Gallbladder and bile ducts: The gallbladder is surgically absent. There is no ductal dilatation. Pancreas: The pancreas is normal. Spleen: Calcified splenic granulomata are noted. The spleen is otherwise normal. Stable clips in the medial aspect of the spleen. Adrenal glands: The adrenal glands are normal. Kidneys and ureters: Normal symmetric enhancement of the kidneys. There are bilateral subcentimeter renal low-density lesions which are too small for accurate characterization, likely representing simple cysts. 3-4 mm nonobstructing left renal calculi. No hydronephrosis. Stomach and bowel: Apparent conversion of prior gastric sleeve to gastric bypass. There is no large or small bowel obstruction. There is no evidence of bowel wall thickening. Appendix: A normal appendix is not identified. There is no secondary evidence of acute appendicitis. Intraperitoneal space: No inflammatory changes are identified. There is no free fluid or fluid collection seen. There is no pneumoperitoneum. Vasculature: The aorta is normal in course and caliber. No significant atherosclerotic calcifications are present. Lymph nodes: There are no enlarged retroperitoneal or mesenteric lymph nodes. Urinary bladder: The bladder is decompressed and collapsed. No abnormality identified. Reproductive: The uterus is present. Bones/joints: No acute osseous abnormalities are seen. Soft tissues: The soft tissues are within normal limits. CT/CT abdomen pelvis w con* [id number] IMPRESSION: 1. No acute intra-abdominal or pelvic process. 2. 3-4 mm nonobstructing left renal calculi. COMMENTS: Consistent with the [employer]'s Incidental Findings Committee white paper (J Am Miriam Radiol 2018): Any incidental renal lesion less than 1 cm or classified as too small to characterize, or any incidental cystic renal lesion characterized as simple-appearing, is likely benign. No follow-up imaging is recommended for these lesions per consensus recommendations based on imaging criteria.
--- NOTE | 2024-01-26 18:22 | W.ED.FEMALGU ---
HPI - Female Genitourinary General: Chief complaint: Urogenital-Female Stated complaint: Vaginal Bleeding, trouble urinating Time Seen by Provider: 01/26/24 17:54 Source: patient Mode of arrival: ambulatory Limitations: no limitations History of Present Illness: Patient is a 54-year-old female presenting to the emergency department complaining of vaginal discharge for the past week. She states she has been seen twice at her primary care's office for this, has been tried on 2 different antibiotics as well as a shot of Rocephin and is still continuing to have discharge that is now soaking through multiple pads a day. She is also noting some hematuria as well as some bilateral flank pain. States that she has had urinary tract infection before but this feels different. She is also noting some suprapubic pain. States that symptoms all began after having sexual intercourse for the first time in 9 months with an ex-boyfriend. No other symptoms reported at this time. Patient is postmenopausal. MD elicited complaint: vaginal discharge Pertinent past history: recurrent UTIs Onset (ago): week(s) Severity: moderate Associated symptoms: Reports abdominal pain and vaginal discharge; Deny headache(s) or nausea Sexual activity: New Sexual Partners Patient : No Review of Systems General: Reports: 10 or more systems reviewed and unremarkable except in HPI and below Const: Denies: fever(s), chills, change in appetite, change in weight or diaphoresis ENMT: Denies: throat pain or hoarseness Card: Denies: chest pain, palpitations or lightheadedness Resp: Denies: dyspnea, productive cough or wheezing GI: Reports: abdominal pain; Denies: nausea, vomiting, diarrhea, constipation, bloating, change in stool character or hematochezia : Reports: hematuria, vaginal odor and vaginal discharge; Denies: flank pain, difficulty voiding, dysuria, urinary frequency or urinary urgency Musc: Reports: back pain; Denies: neck pain Skin/Breast: Denies: rash or new lesions Neuro: Denies: headache(s) or dizziness PFSH ED PFSH: Medical History Metabolic syndrome Hypothyroid Anxiety and depression KRISTYN (obstructive sleep apnea) Diabetes Dyslipidemia Surgical History History of carpal tunnel release right Hx of tubal ligation Hx of appendectomy Hx of cholecystectomy Hx of gastric bypass Family History Family/Other Cancer Breast Heart disease Father Diabetes Social History Smoking and tobacco/nicotine status: former use of tobacco/nicotine Quit status (tobacco/nicotine): has quit using Year quit tobacco: 2014 Former quit date comment: 0.5 PPD x 15 yrs Second hand smoke exposure: No Alcohol intake: never Substance/Drug Use: never Lives independently: Yes Household members: children Marital status: Highest education level completed: High School Graduate service: No Current occupational status: unemployed Current occupational exposures/hazards: No Current gender identity: Female Special kelly needs: No Physical Exam Const: COMMON NORMALS: no acute distress, average body habitus, patient oriented x3, no limitations, healthy appearing, alert and well nourished GENERAL APPEARANCE: cooperative and comfortable ORIENTATION/CONSCIOUSNESS: Yes awake HENMT: COMMON NORMALS: normocephalic, atraumatic, hearing grossly normal bilaterally, external ears normal, Normal external nose present, Normal nasal mucous membranes and turbinates present and moist oral mucous membranes HEAD & SCALP: normocephalic and atraumatic NOSE: Normal external nose present and Normal nasal mucous membranes and turbinates present EXTERNAL EAR: Yes external ears normal Eye: COMMON NORMALS: Equal, round and reactive pupils present, EOMs intact bilaterally, conjunctivae normal and normal visual benjamin by confrontation CONJUNCTIVA: Yes conjunctivae normal PUPIL: Yes Equal, round and reactive pupils present Neck/C-Spine: COMMON NORMALS: full ROM, supple, no meningeal signs and no JVD Resp: COMMON NORMALS: normal respiratory effort, No retractions, No use of accessory muscles and clear to auscultation bilaterally AUSCULTATION: clear to auscultation bilaterally, no crackles, no rales, no rhonchi and no wheezes Cardio: COMMON NORMALS: no JVD, regular rate, regular rhythm, S1 normal heart sound present, S2 normal heart sound present, No gallops present (Cardio), No clicks present (Cardio), No murmurs present (Cardio), No rub (Cardio) and Peripheral pulses 2+ throughout RATE: regular rate RHYTHM: regular rhythm HEART SOUNDS: S1 normal heart sound present and S2 normal heart sound present PERIPHERAL PULSES: Peripheral pulses 2+ throughout GI: COMMON NORMALS: Normal to inspection, nondistended, normoactive bowel sounds present, Soft to palpation, non-tender, No hepatosplenomegaly present and no masses AUSCULTATION: Yes normoactive bowel sounds PALPATION: Yes Soft to palpation, No Guarding due to palpation present (GI), No Rigid due to palpation and Yes No hepatosplenomegaly present RECTAL EXAM: deferred : COMMON NORMALS: Yes no CVA tenderness BLADDER/KIDNEY EXAM: Yes no CVA tenderness Back/Pelvis: COMMON NORMALS: no CVA tenderness Extremity: COMMON NORMALS: normal to inspection and full ROM Neuro: COMMON NORMALS: patient oriented x3, moves all extremities, no focal motor deficits and no sensory deficits noted SENSORIUM/ORIENTATION: Yes alert MENINGEAL SIGNS: Yes no meningeal signs Psych: COMMON NORMALS: mental status grossly normal, cooperative and speech normal SPEECH: Yes normal speech Skin: COMMON NORMALS: no rashes or lesions noted GENERAL SKIN EXAM: no rashes or lesions noted Course Vital Signs: Vital signs: Vital Signs Temperature 98.1 F 01/26/24 17:02 Pulse Rate 73 01/26/24 19:38 Blood Pressure 127/56 01/26/24 19:38 Pulse Oximetry 96 01/26/24 19:38 Oxygen Delivery Me thod Room Air 01/26/24 19:38 [facility] - Female Medical Decision Making Patient was seen for ongoing symptoms of vaginal discharge, now associated with some hematuria. Initially she had been treated with Bactrim, Cipro, and a shot of Rocephin, however only underwent urinalysis which was never cultured and no STD testing. She is now reporting some lower abdominal pain, though mild. On arrival her vitals were normal and condition has remained stable throughout the ED course. Her examination was unremarkable. Her basic lab workup was unremarkable. Urinalysis revealed numerous white blood cells and signs of a urinary tract infection. Due to her pain and consistency of symptoms, I did order a CT that was negative for any acute process. Her urine is being cultured as well as tested for chlamydia and gonorrhea. At this time, I do think that patient has not been properly treated for chlamydial infection, as due to the odor reported and amount of vaginal discharge, this clinically correlates with this type of infection. Due to this I will switch her to doxycycline as well as to repeating a dose of ceftriaxone here in the emergency department. I also placed a case management consult for urology so that the patient can follow-up if her symptoms are not improving, as neck step is likely direct visualization via cystoscopy. Patient agrees with this plan and reasons to return are discussed. Lab Data 01/26/24 18:29 01/26/24 18:29 Radiology Impressions Abdomen/Pelvis CT 01/26/24 18:15 IMPRESSION: 1. No acute intra-abdominal or pelvic process. 2. 3-4 mm nonobstructing left renal calculi. COMMENTS: Consistent with the [employer]'s Incidental Findings Committee white paper (J Am Miriam Radiol 2018): Any incidental renal lesion less than 1 cm or classified as too small to characterize, or any incidental cystic renal lesion characterized as simple-appearing, is likely benign. No follow-up imaging is recommended for these lesions per consensus recommendations based on imaging criteria. Laboratory Results WBC 6.05 10^3/uL (3.29-11.43) 01/26/24 18:29 RBC 4.34 10^6/uL (3.85-5.65) 01/26/24 18:29 Hgb 13.30 g/dL (11.27-16.99) 01/26/24 18:29 Hct 42.6 % (36-47) 01/26/24 18:29 MCV 98.2 fl (85-98) H 01/26/24 18:29 MCH 30.6 pg (27-33) 01/26/24 18:29 MCHC 31.2 g/dL (30-55) 01/26/24 18:29 RDW 12.6 % (12.1-15.1) 01/26/24 18:29 Plt Count 208 10^3/cmm (157-399) 01/26/24 18:29 MPV 10.2 fL (7.4-10.4) 01/26/24 18:29 Neut % (Auto) 43.9 % 01/26/24 18:29 Lymph % (Auto) 45.8 % 01/26/24 18:29 Placer % (Auto) 8.3 % 01/26/24 18:29 Eos % (Auto) 1.2 % 01/26/24 18:29 Baso % (Auto) 0.5 % 01/26/24 18:29 Neut # (Auto) 2.66 10^3/uL (1.8-7.7) 01/26/24 18: Lymph # (Auto) 2.8 10^3/uL (0.8-4.8) 01/26/24 18:29 Placer # (Auto) 0.5 10^3/uL (0.2-0.9) 01/26/24 18: Eos # (Auto) 0.1 10^3/uL (0.0-0.8) 01/26/24 18: Baso # (Auto) 0.0 10^3/uL (0.0-0.1) 01/26/24 18: Nucleated RBC % (auto) 0 % 01/26/24 18: Nucleated RBCs # 0.0 /100WBC 01/26/24 18:29 Sodium 138 mmol/L (136-145) 01/26/24 18: Potassium 4.0 mmol/L (3.5-5.1) 01/26/24 18: Chloride 106 mmol/L (98-107) 01/26/24 18: Carbon Dioxide 20 mmol/L (22-29) L 01/26/24 18: Anion Gap 16.0 (5-19) 01/26/24 18: BUN 11 mg/dL (6-20) 01/26/24 18: Creatinine 0.4 mg/dL (0.5-0.9) L 01/26/24 18: GFR Calculation 166.3 mL/min (90-130) H 01/26/24 18:29 Glucose 83 mg/dL (65-115) 01/26/24 18: Calculated Osmolality 285 mOsm/kg (285-295) 01/26/24 18: Calcium 8.6 mg/dL (8.5-10.5) 01/26/24 18: Total Bilirubin 0.3 mg/dL (0.15-1.2) 01/26/24 18:29 AST 22 U/L (0-32) 01/26/24 18:29 ALT 30 U/L (0-33) 01/26/24 18:29 Alkaline Phosphatase 100 U/L (35-105) 01/26/24 18:29 Total Protein 6.8 g/dL (6.6-8.7) 01/26/24 18: Albumin 4.1 g/dL (3.5-5.2) 01/26/24 18: Globulin 2.7 g/dL (1.3-4.6) 01/26/24 18:29 Lipase 56 U/L (13-60) 01/26/24 18:29 Urine Color Yellow (Yellow) 01/26/24 18:43 Urine Appearance Cloudy (CLEAR) A 01/26/24 18:43 Urine pH 5 (5-7) 01/26/24 18:43 Ur Specific [place] 1.025 (1.005-1.030) 01/26/24 18:43 Urine Protein Neg (Negative) 01/26/24 18:43 Urine Glucose (UA) Norm (Normal) 01/26/24 18:43 Urine Ketones Negative (Negative) 01/26/24 18:43 Urine Blood Trace (Negative) H 01/26/24 18:43 Urine Nitrate Negative (Negative) 01/26/24 18:43 Urine Bilirubin Neg (Negative) 01/26/24 18:43 Urine Urobilinogen Norm mg/dL (Negative) 01/26/24 18:43 Ur Leukocyte Esterase 1+ (Negative) H 01/26/24 18:43 Urine RBC 5-10 /hpf (0-2) H 01/26/24 18:43 Urine WBC 80-100 /hpf (0-5) H 01/26/24 18:43 Ur Squamous Epith Cells 0-4 /hpf (0-5) H 01/26/24 18:43 Amorphous Sediment Not Reportable 01/26/24 18:43 Urine Bacteria Trace /hpf (NONE) 01/26/24 18:43 Urine Mucus None /hpf 01/26/24 18:43 All radiology interpretation(s) finalized by discharge Discharge Plan Discharge Patient Disposition: Home Clinical Impression: Sexually transmitted infection Condition: Stable Prescriptions: New doxycycline hyclate 100 mg tablet 100 mg PO BID 10 Days Qty: 20 0RF No Action hydroxyzine HCl 25 mg tablet 25 mg PO BID PRN cyanocobalamin (vitamin B-12) 1,000 mcg/mL solution 1,000 mcg IM .monthly Qty: 1 4RF cholecalciferol (vitamin D3) 1,250 mcg (50,000 unit) capsule 50,000 unit PO .qweek Qty: 14 3RF ondansetron 4 mg tablet,disintegrating 4 mg PO Q8H Qty: 30 3RF sulfamethoxazole-trimethoprim [Bactrim DS] 800-160 mg tablet 1 tab PO BID 10 Days Qty: 20 0RF ciprofloxacin HCl [Cipro] 500 mg tablet 500 mg PO BID Qty: 20 0RF fluconazole 150 mg tablet 150 mg PO DAILY Qty: 3 0RF nitrofurantoin macrocrystal 100 mg capsule 100 mg PO BID 7 Days Qty: 14 0RF Rx Instructions: must administer with a meal/food Discharge Orders: Discharge ED (Routine); Ordered 01/26/24 Ordered By: Brando Shipman Referrals: Jillian Gonzalez MD [Primary Care Provider] - Discharge Diet: Usual diet Discharge Activity: Increase activity as tolerated Patient Instructions: Sexually Transmitted Diseases (ED) Activity Restrictions/Additional Instructions: Doxycycline as prescribed. Stop your Cipro. Follow-up with urology as discussed. Monitor for any new or worsening symptoms you may have and return for reevaluation. Coding Level of Care Code ED [facility] Supervisor for Elie Del Valle
[2024-01-26 18:41] LABS: Basophils % 0.5 %; Eosinophils # 0.1 10^3/uL (0.0-0.8); Eosinophils % 1.2 %; Hematocrit 42.6 % (36-47); Lymphocytes # 2.8 10^3/uL (0.8-4.8); Lymphocytes % 45.8 %; Mean Corpuscular HGB Conc 31.2 g/dL (30-55); Mean Corpuscular Hemoglobin 30.6 pg (27-33); Mean Corpuscular Volume 98.2 fl (85-98); Mean Platelet Volume 10.2 fL (7.4-10.4); Monocytes # 0.5 10^3/uL (0.2-0.9); Monocytes % 8.3 %; Neutrophils # 2.66 10^3/uL (1.8-7.7); Neutrophils % 43.9 %; Nucleated Red Blood Cells % 0 %; Platelet Count 208 10^3/cmm (157-399); Red Blood Count 4.34 10^6/uL (3.85-5.65); Red Cell Distribution Width 12.6 % (12.1-15.1); White Blood Count 6.05 10^3/uL (3.29-11.43)
[2024-01-26 18:45] VITALS: BP 102/57; PULSE 67; O2SAT 92
[2024-01-26 18:53] LABS: Alanine Aminotransferase 30 U/L (0-33); Albumin Level 4.1 g/dL (3.5-5.2); Alkaline Phosphatase 100 U/L (35-105); Aspartate Amino Transferase 22 U/L (0-32); Blood Urea Nitrogen 11 mg/dL (6-20); Calcium 8.6 mg/dL (8.5-10.5); Carbon Dioxide 20 mmol/L (22-29); Chloride 106 mmol/L (98-107); Globulin 2.7 g/dL (1.3-4.6); Glomerular Filtration Rate 166.3 mL/min (90-130); Glucose 83 mg/dL (65-115); Lipase 56 U/L (13-60); Osmolality Calculated 285 mOsm/kg (285-295); Sodium 138 mmol/L (136-145); Total Bilirubin 0.3 mg/dL (0.15-1.2); Total Protein 6.8 g/dL (6.6-8.7)
[2024-01-26 18:58] LABS: Blood Urine Trace (Negative); Glucose Urine UA Norm (Normal); Ketones Urine Negative (Negative); Protein Urine Neg (Negative); Specific Gravity, Urine 1.025 (1.005-1.030); Urine Appearance Cloudy (CLEAR); Urine Color Yellow (Yellow); pH Urine 5 (5-7)
[2024-01-26 18:59] LABS: Add Urine Microscopic? YES; Bilirubin Urine Neg (Negative); Leukocyte Esterase Urine 1+ (Negative); Nitrate Urine Negative (Negative); Urobilinogen Urine Norm (Negative)
[2024-01-26 19:06] LABS: Bacteria Urine TRACE /hpf; Squamous Epithelial Cell Urine 0-4 /hpf (0-5); WBC Urine 80-100 /hpf (0-5)
[2024-01-26 19:07] LABS: Add Urine Culture? Yes
[2024-01-26] MEDS: iohexol 350 mg/mL 500 mL Btl (per mL) IV (19:15)
[2024-01-26 19:38] VITALS: BP 127/56; PULSE 73; O2SAT 96
[2024-01-26] MEDS: cefTRIAXone 1,000 MG in sodium chloride 0.9% (plus) 50 ML 100 MG IV (20:58)
[2024-01-26] MEDS: doxycycline 100 mg Tablet PO (20:59)
[2024-01-26 21:30] VITALS: BP 108/57; PULSE 86; RESP 16; O2SAT 95
[2024-01-28 16:03] LABS: Chlamydia Trachomatis RNA TMA NOT DETECTED (NOT DETECTED); Neisseria Gonorrhoeae RNA, TMA NOT DETECTED (NOT DETECTED)
== END 2024-01-26 21:17 | disposition home or self-care (01) ==
PROVIDERS: Emergency Provider Physician Assistant; PCP Family Medicine
DX: A64 Unspecified sexually transmitted disease (principal); E11.9 Type 2 diabetes mellitus without complications; Z87.891 Personal history of nicotine dependence
CPT/HCPCS: 36415; 74177; 80053; 81001; 83690; 85025; 87086; 87491; 87591; 96365; 99285; J0696; Q9967

== ENCOUNTER → 2024-05-15 13:08 | Outpatient (BNVA) | payer BC, MEDICAID, SELFPAY | PROVIDERS: PCP Family Medicine; Visit Provider Nurse Practitioner Family | DX: F41.9 Anxiety disorder, unspecified (principal); L60.3 Nail dystrophy; R53.83 Other fatigue; F33.1 Major depressive disorder, recurrent, moderate; R79.89 Other specified abnormal findings of blood chemistry; R76.8 Other specified abnormal immunological findings in serum; F15.10 Other stimulant abuse, uncomplicated | CPT/HCPCS: 80053; 82306; 82607; 82746; 83550; 84443; 85025; 86038 ==

== ENCOUNTER → 2024-08-03 15:28 | Outpatient (BNVA) | payer MEDICAID, SELFPAY | PROVIDERS: PCP Nurse Practitioner Family; Visit Provider Nurse Practitioner Family | DX: R39.9 Unspecified symptoms and signs involving the genitourinary system (principal) | CPT/HCPCS: 81000 ==

== ENCOUNTER → 2024-08-31 10:20 | Outpatient (BNVA) | payer MEDICAID, SELFPAY | PROVIDERS: PCP Nurse Practitioner Family; Visit Provider Nurse Practitioner Family | DX: R05.9 Cough, unspecified (principal) | CPT/HCPCS: 87426 ==